=== PATIENT | male | born 1950 | race Caucasian/White ===

== ENCOUNTER → 2017-12-22 | Outpatient (CLI) | payer MEDICARE, OTHER | END | disposition home or self-care (01) | LOC: LABWHC1 08:16 | PROVIDERS: ATTEND Internal Medicine Cardiovascular Disease | DX: I25.10 Atherosclerotic heart disease of native coronary artery without angina pectoris (principal) | CPT/HCPCS: 36415; 83704 ==

== ENCOUNTER → 2018-05-15 | Outpatient (CLI) | payer MEDICARE, OTHER ==
--- NOTE | 2018-05-16 06:39 | CT ---
EXAMINATION TYPE: CT sinus wo con DATE OF EXAM: 05/15/2018 COMPARISON: None HISTORY: 67-year-old male Chronic sinusitis CT DLP: 618.1 mGycm Automated exposure control for dose reduction was used. TECHNIQUE: Noncontrast axial views of the paranasal sinuses were obtained. Coronal reconstructions pe rformed. FINDINGS: PARANASAL SINUSES: Moderate mucosal thickening within the anterior ethmoid air cells and mild within the left greater th an right maxillary sinuses. The sphenoid and frontal sinuses are well pneumatized. There is no air-fluid level. Reactive quang- osteogenesis is not seen. There is no destruction of the osseous bond of the paranasal sinuses. THE NASAL CAVITY: There is mucosal thickening which extends to the left osteomeatal complex. The right osteomeatal comp edwar is patent. There is rightward nasal septal deviation. The imaged brain and orbits are normal in appearance. Visualized middle ear cavities are well pneumatized. Most of the mastoid air cells are excluded from view. Reformatted images confirm above findings. IMPRESSION: Mild to moderate chronic anterior ethmoid and maxillary sinusitis.
== END | disposition home or self-care (01) ==
LOC: RADCTMAIN 18:43
PROVIDERS: ATTEND Family Medicine
DX: J32.0 Chronic maxillary sinusitis (principal); J32.2 Chronic ethmoidal sinusitis
CPT/HCPCS: 70486

== ENCOUNTER 2018-07-26 06:14 | Day surgery (SDC) | payer MEDICARE, OTHER ==
[2018-07-24 10:30] VITALS: BMI 37.6
[~2018-07-26 06:14] MED LIST: HYDROmorphone 1 MG/ML 1 ML SYRINGE IVP PRN; LACTATED RINGERS 1,000 ML IV SCH; LIDOCAINE 1% 20 ML VIAL (10MG/ML) FOR IV START INTRADERMA PRN; ONDANSETRON 4 MG/2 ML VIAL IVP ONE; Pre Op ABX Message 1 EACH MISC MISCELLANE ONE
--- NOTE | 2018-07-26 06:34 | P.GSHP ---
History of Present Illness H&P Date: 07/26/18 CHIEF COMPLAINT: History of left basal cell cancer of the knee. HISTORY OF PRESENT ILLNESS: Wiley Anna is a 67 years-old male who comes in with a history of basal cancer of the knee. Overall, he comes in without any major concerns. This was biopsied a year ago. He now presents for further evaluation and management. There are no reports of lesions elsewhere. PAST MEDICAL HISTORY: Please see list. PAST SURGICAL HISTORY: Please see list. MEDICATIONS: Please see list. ALLERGIES: Please see list. SOCIAL HISTORY: No illicit drug use FAMILY HISTORY: No reports of Crohn disease or ulcerative colitis. REVIEW OF ORGAN SYSTEMS: CONSTITUTIONAL: No reports of fevers or chills. GI: Denies any blood in stools or constipation. PHYSICAL EXAM: Patient is a 67-year-old male. Skin: 1.5 cm irregular bordered basal cell cancer over the medial axis of the left knee along the inferior portion of the thigh. No additional telangiectasia noted. GENERAL: Well developed and in no acute distress. Pleasant. HEENT: No sclera icterus. Extraocular movements grossly intact. Moist buccal mucosa. Head is atraumatic, normocephalic. Hears conversational speech. No nasal drainage. NECK: Supple without lymphadenopathy. No JV distention. CHEST: Non-labored respirations and equal bilateral excursions. CARDIOVASCULAR: Regular rate and rhythm. Palpable 2+ radial pulses. ABDOMEN: Soft. Non-tender. Nondistended. MUSCULOSKELETAL: No clubbing, cyanosis or edema. NEUROLOGIC: No focal or lateralizing signs. PSYCH: Appropriate affect. Alert and oriented to person, place and time. ASSESSMENT: 1. Basal cell cancer of the left knee. PLAN: 1. Excision was advised with overall recovery at least a week. 2. IV sedation was advised. Past Medical History Past Medical History: Hypertension Additional Past Medical History / Comment(s): skin CA left knee History of Any Multi-Drug Resistant Organisms: None Reported Past Surgical History: Cholecystectomy, Pacemaker Past Anesthesia/Blood Transfusion Reactions: No Reported Reaction Additional Past Anesthesia/Blood Transfusion Reaction / Comment(s): no hx blood transfusion Type of Cardiac Device: Permanent Pacemaker Device Placement Date:: 07/2008,02/2016 Smoking Status: Never smoker - Past Family History Sister(s) Family Medical History: Cancer Medications and Allergies Home Medications Medication Instructions Recorded Confirmed Type Aspirin 325 mg PO DAILY 07/29/15 11/14/18 History Terazosin [Hytrin] 5 mg PO HS 04/07/15 07/24/18 History amLODIPine BESYLATE [Norvasc] 10 mg PO HS 04/07/15 07/24/18 History Lisinopril [Zestril] 20 mg PO HS 03/02/16 07/24/18 History Ubidecarenone [Co Q-10] 200 mg PO DAILY 03/02/16 07/24/18 History Dexamethasone [Decadron] 0.75 mg PO QAM 07/24/18 07/24/18 History Allergies Allergy/AdvReac Type Severity Reaction Status Date / Time No Known Allergies Allergy Verified 07/24/18 10:21
[2018-07-26] MEDS ORDERED: ceFAZolin IN SWFI 2 GM/20 ML SYRINGE IVP STA (06:35)
[2018-07-26 06:41] VITALS: RESP 16; TEMP 98
[2018-07-26 07:04] LABS: Glucose,Whole Blood 103 mg/dL (75-99)
[2018-07-26] MEDS ORDERED: MIDAZOLAM 2 MG/2 ML VIAL ONE (07:37)
[2018-07-26] MEDS ORDERED: KETAMINE 10 MG/ML 20 ML VIAL ONE (07:37)
[2018-07-26] MEDS ORDERED: fentaNYL (PF) 50 MCG/ML 2 ML AMP ONE (07:37)
[2018-07-26] MEDS ORDERED: PROPOFOL 10 MG/ML 20 ML VIAL IV ONE (07:37)
[2018-07-26] MEDS ORDERED: BUPIVACAIN-EPI 0.25%-1:200,000 30 ML VIAL SQ ONE (07:51)
[2018-07-26 08:50] VITALS: BP 133/83; PULSE 64
--- NOTE | 2018-07-26 09:09 | P.OP ---
Date of Procedure: 07/26/18 Description of Procedure: SURGEON: KAELA CRAIG MD DELIVERY TRUCK DRIVER HEAVY: NONE. PREOPERATIVE DIAGNOSES: 1. Left medial knee basal cell skin cancer POSTOPERATIVE DIAGNOSES: 1. Left medial knee basal cell skin cancer OPERATION: 1. Excision of left medial knee basal cell skin cancer, 5 x 3 cm with margins 2. Complex closure of left medial knee incision, 7 cm. ANESTHESIA: MAC with local ESTIMATED BLOOD LOSS: 5 mL. SPECIMENS REMOVED: 1. Left medial knee skin cancer, long superior, short medial COMPLICATIONS: None. INDICATIONS: The patient is a 68-year-old male who presents with left medial knee cancer. Surgical options, including excision was discussed. Benefits and risks were described. Informed consent was obtained. DESCRIPTION OF PROCEDURE: Patient was brought into the operating room, laid in left lateral decubitus position. After adequate IV sedation, the left leg was prepped and draped in standard sterile fashion using ChloraPrep. A timeout protocol was confirmed with the surgical team regarding patient's name including procedures to be performed. Preoperative medications was administered. Next, a local field block was administered. The left knee lesion was measured using a ruler with borders marked with indelible marker. An elliptical incision of 5 x 3 cm in size into the dermis followed by circumferential dissection using electro-Bovie cautery was performed into the subcutaneous tissue. Hemostasis was checked with electrocautery cautery. The wound was closed in multiple layers after widely undermining to develop skin flaps. The skin was closed including 0 Vicryl for the deep subcutaneous tissue, 3-0 Vicryl was placed interrupted along the deep dermis. The skin was closed using 4-0 Monocryl. Interrupted stainless skin patti was placed. Exofin liquid glue and tape was used as the final fourth layer. The skin was cleansed. Optifoam dressing was placed. At the end of the procedure, needle, sponge, and instrument count had been verified correct by the manager surgical. The patient was taken to the postanesthesia care unit in stable condition. FINDINGS: 1. Left knee medial lesion excision, 5 x 3 cm subcutaneous tissue Plan - Discharge Summary New Discharge Prescriptions: New Ibuprofen [Motrin] 600 mg PO Q8HR PRN #20 tab PRN Reason: Pain No Action amLODIPine BESYLATE [Norvasc] 10 mg PO HS Terazosin [Hytrin] 5 mg PO HS Aspirin 325 mg PO DAILY Lisinopril [Zestril] 20 mg PO HS Ubidecarenone [Co Q-10] 200 mg PO DAILY Dexamethasone [Decadron] 0.75 mg PO QAM Discharge Medication List Aspirin 325 mg PO DAILY 04/07/15 [History] Terazosin [Hytrin] 5 mg PO HS 04/07/15 [History] amLODIPine BESYLATE [Norvasc] 10 mg PO HS 04/07/15 [History] Lisinopril [Zestril] 20 mg PO HS 03/02/16 [History] Ubidecarenone [Co Q-10] 200 mg PO DAILY 03/02/16 [History] Dexamethasone [Decadron] 0.75 mg PO QAM 07/24/18 [History] Ibuprofen [Motrin] 600 mg PO Q8HR PRN #20 tab 07/26/18 [Rx] Follow up Appointment(s)/Referral(s): Kaela Craig MD [STAFF PHYSICIAN] - 07/30/18 4:20 pm Patient Instructions/Handouts: *Surgery [facility] - (Anesthesia) Discharge Instructions Outpatient Surgery Activity/Diet/Wound Care/Special Instructions: May shower. No baths soaks. Do not remove dressing. Do not overstretch your left knee. Discharge Disposition: HOME SELF-CARE
== END 2018-07-26 09:00 | disposition home or self-care (01) ==
LOC: OR 06:14
PROVIDERS: ATTEND Surgery Plastic and Reconstructive Surgery
DX: C44.719 Basal cell carcinoma of skin of left lower limb, including hip (principal); I10 Essential (primary) hypertension; Z79.82 Long term (current) use of aspirin; Z79.899 Other long term (current) drug therapy; Z79.52 Long term (current) use of systemic steroids; Z95.0 Presence of cardiac pacemaker; Z90.49 Acquired absence of other specified parts of digestive tract
CPT/HCPCS: 11606; 12032; J2250; J2405; J3010; J2704; J0690; 88305

== ENCOUNTER 2019-01-17 09:07 | Day surgery (SDC) | payer MEDICARE, OTHER ==
[2019-01-15 16:34] VITALS: BMI 40.4
[2019-01-17] MEDS ORDERED: LIDOCAINE 1% 20 ML VIAL (10MG/ML) FOR IV START INTRADERMA ONE (09:35)
[2019-01-17] MEDS ORDERED: LACTATED RINGERS 1,000 ML IV ONE (09:35)
[2019-01-17 09:53] VITALS: RESP 18; TEMP 97.9
[2019-01-17] MEDS ORDERED: PROPOFOL 10 MG/ML 20 ML VIAL IV ONE (10:34)
--- NOTE | 2019-01-17 10:54 | P.PCN ---
Date of Procedure: 01/17/19 Procedure(s) Performed: BRIEF HISTORY: Patient is a 68-year-old pleasant male, scheduled for an elective colonoscopy as a part of screening for colorectal neoplasia. PROCEDURE PERFORMED: Colonoscopy. PREOPERATIVE DIAGNOSIS: Screening for colon cancer. IV sedation per Anesthesia. PROCEDURE: After informed consent was obtained, the patient, was brought into the endoscopy unit. IV sedation was administered by Anesthesia under continuous monitoring. Digital rectal examination was normal. Initially the Olympus CF-160 flexible video colonoscope was then inserted in the rectum, gradually advanced into the cecum without any difficulty. Careful examination was performed as the scope was gradually being withdrawn. Ileocecal valve and the appendiceal orifice were visualized and appeared normal. Prep was fair. Irrigation was performed in some areas of the colon. Mucosa of the cecum, ascending colon, transverse colon, descending colon, sigmoid colon, and rectum appeared normal. Retroflexion was performed in the rectum and small internal hemorrhoids were seen. The patient tolerated the procedure well. IMPRESSION: Normal-appearing colon from rectum to cecum with no evidence of colonic neoplasia Small internal hemorrhoids RECOMMENDATIONS: Findings of this examination were discussed with the patient as well as his family. He was advised to have a repeat screening colonoscopy in 10 years.
[2019-01-17 11:14] VITALS: BP 107/76; PULSE 59
== END 2019-01-17 11:45 | disposition home or self-care (01) ==
LOC: ORWHC2ENDO 09:07
PROVIDERS: ATTEND Internal Medicine Gastroenterology
DX: Z12.11 Encounter for screening for malignant neoplasm of colon (principal); K64.8 Other hemorrhoids; I10 Essential (primary) hypertension; Z79.82 Long term (current) use of aspirin; Z79.899 Other long term (current) drug therapy; Z88.5 Allergy status to narcotic agent; Z95.0 Presence of cardiac pacemaker
CPT/HCPCS: J2704; G0121; 45378

== ENCOUNTER → 2019-03-21 | Outpatient (CLI) | payer MEDICARE, OTHER ==
[2019-03-21 10:00] LABS: HCT 43.5 % (39.0-53.0); HGB 14.6 gm/dL (13.0-17.5); MCH 30.5 pg (25.0-35.0); MCHC 33.5 g/dL (31.0-37.0); Mean Platelet Volume 7.2; Platelet Count 262 k/uL (150-450); RBC 4.78 m/uL (4.30-5.90); RDW 13.3 % (11.5-15.5); WBC 7.2 k/uL (3.8-10.6)
[2019-03-21 10:06] LABS: African American GFR (CKD) >90 (>60 ml/min/1.73 sqM); Anion Gap 8 mmol/L; Blood Urea Nitrogen 19 mg/dL (9-20); Carbon Dioxide 29 mmol/L (22-30); Chloride 104 mmol/L (98-107); Potassium 4.5 mmol/L (3.5-5.1); Sodium 141 mmol/L (137-145)
== END | disposition home or self-care (01) ==
LOC: LABPAT 09:32
PROVIDERS: ATTEND Internal Medicine Interventional Cardiology
DX: Z01.812 Encounter for preprocedural laboratory examination (principal); I70.213 Atherosclerosis of native arteries of extremities with intermittent claudication, bilateral legs
CPT/HCPCS: 36415; 80051; 82565; 84520; 85027

== ENCOUNTER 2019-03-26 10:45 | Day surgery (SDC) | payer MEDICARE, OTHER ==
[~2019-03-26 10:45] MED LIST changes: +ALPRAZolam 0.25 MG TAB PO PRN; +ASPIRIN 325 MG TAB PO STA; -HYDROmorphone 1 MG/ML 1 ML SYRINGE IVP PRN; -LACTATED RINGERS 1,000 ML IV SCH; -LIDOCAINE 1% 20 ML VIAL (10MG/ML) FOR IV START INTRADERMA PRN; -ONDANSETRON 4 MG/2 ML VIAL IVP ONE; -Pre Op ABX Message 1 EACH MISC MISCELLANE ONE; +SODIUM CHLORIDE 0.9% 1,000 ML in EMPTY BAG 1 BAG IV ONE
[2019-03-26 11:22] VITALS: TEMP 98.1
[2019-03-26 11:32] LABS: Glucose,Whole Blood 105 mg/dL (75-99)
[2019-03-26] MEDS ORDERED: MIDAZOLAM (PF) 2 MG/2 ML VIAL IVP ONE (12:57)
[2019-03-26] MEDS ORDERED: LIDOCAINE 1% INJ 10MG/ML (20 ML MDV) SQ ONE (12:59)
[2019-03-26] MEDS ORDERED: IOPAMIDOL-250 100ML BTL INTRAARTER ONE (13:18)
[2019-03-26] MEDS ORDERED: IOPAMIDOL-250 50ML BTL INTRAARTER ONE ×2 (13:18)
[2019-03-26] MEDS ORDERED: SODIUM CHLORIDE 0.9% 1,000 ML IV SCH (13:30)
[2019-03-26 15:16] VITALS: RESP 16
[2019-03-26 17:11] VITALS: BP 124/76; PULSE 67
--- NOTE | 2019-03-26 23:56 | AN ---
ANGIOGRAPHY REPORT DATE OF SERVICE: 03/26/2019 PERFORMING PHYSICIAN: Emir Segal MD, advisory application developer. PROCEDURES PERFORMED: 1. Abdominal aortogram. 2. Bilateral lower extremity runoff. 3. Selective left SFA angiogram. INDICATION: This is a 68-year-old gentleman with diabetes, hypertension and dyslipidemia who was experiencing symptoms of left leg intermittent claudication. Because of that, an abdominal aortogram and bilateral lower extremity runoff were advised. APPROACH: Right common femoral artery. COMPLICATIONS: None. LEVEL OF SEDATION: Moderate, with sedation length of 23 minutes. PROCEDURE DESCRIPTION: After obtaining informed consent, the patient was brought to the cardiac laborer road. The right common femoral artery was cannulated using micropuncture technique. The micropuncture wire passed easily. Then I placed a 5-Azerbaijani sheath in the right common femoral artery. I did an abdominal aortogram and bilateral lower extremity runoff using a 5-Azerbaijani pigtail catheter. Then I did select the left SFA using a 5-Azerbaijani RIM catheter with 0.035 stiff Glidewire. The procedure was completed without any complication. SELECTIVE PERIPHERAL ANGIOGRAM: 1. The aorta appeared to be angiographically normal. 2. Common iliac arteries: The right and left common iliac arteries are angiographically normal. 3. Internal iliac arteries: The right and left internal iliac arteries are angiographically normal. 4. External: The right and left externals are angiographically normal. 5. Common femoral arteries: The right and left common femoral arteries are angiographically normal. 6. Profundae: Both profundae are patent. 7. SFA: Both SFA are patent. 8. Popliteal: Both popliteals are patent. 9. Below the knee: There is 3-vessel runoff below the knee on the right side with 2- vessel runoff below the knee on the left side with posterior tibial and peroneal and occluded anterior tibial in the midportion. 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 POST-PROCEDURE MANAGEMENT: 1. Consider maximized medical treatment at this point of time. 2. If the patient continues to be symptomatic, I will consider doing a FACILITIES CUSTODIAN of the left anterior tibial artery. MMODL / IJN: [id number] /
--- NOTE | 2019-03-27 07:17 | IR ---
EXAMINATION TYPE: IR angio abdominal w runoff DATE OF EXAM: 03/26/2019 CLINICAL HISTORY: Left leg pain. TECHNIQUE: Fluoroscopy. COMPARISON: None. FINDINGS: Fluoroscopic guidance was provided during abdominal angiogram with runoff procedure perfor med by Dr. Segal. A total of 4.8 minutes of fluoroscopic time was utilized during the procedure and m ultiple spot images are acquired. Images acquired show right-sided groin access with subsequent angio gram and runoff. IMPRESSION: As Above.
== END 2019-03-26 18:33 | disposition home or self-care (01) ==
LOC: CATHCVL 10:45
PROVIDERS: ATTEND Internal Medicine Interventional Cardiology
DX: I70.213 Atherosclerosis of native arteries of extremities with intermittent claudication, bilateral legs (principal); E78.2 Mixed hyperlipidemia; R73.03 Prediabetes; I10 Essential (primary) hypertension; I49.5 Sick sinus syndrome; Z72.0 Tobacco use; Z95.0 Presence of cardiac pacemaker; Z79.82 Long term (current) use of aspirin; Z79.899 Other long term (current) drug therapy
CPT/HCPCS: 36247; 75625; 75716; C1769 ×5; C1894; J2001; Q9966 ×2; J2250

== ENCOUNTER → 2019-04-18 | Outpatient (CLI) | payer MEDICARE, OTHER ==
--- NOTE | 2019-04-18 08:08 | US ---
EXAMINATION TYPE: US duplex aorta DATE OF EXAM: 04/18/2019 COMPARISON: IR angio abdominal with runoff CLINICAL HISTORY: Z13.6 SCREENING FOR CARDIOVASCULAR DISEASE.; pacemaker, PVD, HT 5'11"; [id number], pr ior smoker EXAM MEASUREMENTS: Abdominal Aorta: Proximal: 2.8cm Transverse Mid: 2.1cm Transverse Distal: 2.7cm A/P Bifurcation: not well seen due to patient body habitus Intimal wall thickening is especially noted posterior wall of distal aorta. IMPRESSION: Although there is no sonographic evidence of abdominal aortic aneurysm there is plaquing and intimal wall thickening of the distal abdominal aorta.
--- NOTE | 2019-04-18 08:12 | US ---
EXAMINATION TYPE: US carotid duplex BILAT DATE OF EXAM: 04/18/2019 COMPARISON: NONE CLINICAL HISTORY: I65.23 OCCLUSION AND STENOSIS OF CAROTID ARTERY. EXAM MEASUREMENTS: RIGHT: Peak Systolic Velocity (PSV) cm/sec ----- Right CCA: 78.5 ----- Right ICA: 108.3 ----- Right ECA: 97.8 ICA/CCA ratio: 1.4 RIGHT: End Diastole cm/sec ----- Right CCA: 30.6 ----- Right ICA: 25.4 ----- Right ECA: 20.0 LEFT: Peak Systolic Velocity (PSV) cm/sec ----- Left CCA: 94.7 ----- Left ICA: 101.2 ----- Left ECA: 75.3 ICA/CCA ratio: 1.1 LEFT: End Diastole cm/sec ----- Left CCA: 28.5 ----- Left ICA: 36.5 ----- Left ECA: 20.0 VERTEBRALS (direction of flow): Right Vertebral: Antegrade Left Vertebral: Antegrade Rhythm: Normal Moderate, irregular, mixed wall changes are imaged at bilateral carotid bifurcation, and PSV is wnl b ilaterally. IMPRESSION: Moderate degree of grayscale atheromatous plaquing with no sonographically evident hemod ynamically significant stenosis within either visualized carotid arterial system. Criteria for Assigning % of Stenosis / Diameter reduction (Estimation based on the indirect measurements of the internal carotid artery velocities (ICA PSV). 1. Normal (no stenosis)=ICA PSV < 125 cm/s: ratio < 2.0: ICA EDV<40 cm/s. 2. Less than 50% stenosis=ICA PSV < 125 cm/s: ratio < 2.0: ICA EDV<40 cm/s. 3. 50 to 69% stenosis=ICA PSV of 125 to 230 cm/s: ration 2.0 ? 4.0: ICA EDV 40-100 cm/s. 4. Greater than 70% stenosis to near occlusion= ICA PSV > 230 cm/s: ratio > 4.0: ICA EDV > 100 cm/s. 5. Near occlusion= ICA PSV velocities may be low or undetectable: variable ratio and ICA EDV. 6. Total occlusion=unable to detect flow.
== END | disposition home or self-care (01) ==
LOC: RADUSWWP 06:52
PROVIDERS: ATTEND Family Medicine
DX: I67.2 Cerebral atherosclerosis (principal); I70.0 Atherosclerosis of aorta
CPT/HCPCS: 93880; 93979

== ENCOUNTER → 2019-05-23 | Outpatient (CLI) | payer MEDICARE, OTHER ==
--- NOTE | 2019-05-23 09:27 | CT ---
EXAMINATION TYPE: CT lumbar spine wo con DATE OF EXAM: 05/23/2019 7:59 AM COMPARISON: CT lumbar spine January 22, 2014 HISTORY: Spondylosis without myelopathy or radiculopathy per order. Low back pain for 2 years into le ft leg per patient. CT DLP: 2698.9 mGycm Automated exposure control for dose reduction was used. Unenhanced CT of the lumbar spine was performed. Bone and soft tissue window settings are submitted as well as coronal and sagittal reconstructions. There are 5 lumbar type vertebra redemonstrated. Lumbar spine show satisfactory alignment without beronica dence of acute fracture or dislocation. Vertebral body heights and disc space heights are fairly well -preserved. No large disc herniations are seen on sagittal images. Mild to moderate multilevel anteri or lateral spurring. Review of axial images demonstrates T12-L1 and L1-L2 and L2-L3 levels to appear within normal limits. Axial images at the L3-L4 level demonstrates mild broad disc bulge mildly effacing the anterior theca l sac with mild/moderate facet degenerative changes. There is mild to moderate bilateral anterior inf erior neural foraminal narrowing. No significant change from prior. Axial images at the L4-L5 level show mild facet degenerative changes and ligament flavum hypertrophy. There is mild broad disc bulge. There is effacement of the anterior thecal sac. There is mild right greater than left anterior inferior neural foraminal narrowing. No significant change from prior. Axial images at the L5-S1 level show [id number] facet degenerative changes bilaterally. There i s central disc protrusion but the spinal canal is preserved. Bilateral neural foramina are patent. Surgical clips near diaphragmatic hiatus distal esophagus are redemonstrated. Mild/moderate calcified plaque of the aorta extending into branch vessels. IMPRESSION: Multilevel degenerative changes mid to lower lumbar spine as detailed above. No significa nt change or progression from 2014 study. No suspicious large disc herniation to account for left-juan ed radiculopathy type symptoms reported by patient.
== END | disposition home or self-care (01) ==
LOC: RADCTMAIN 07:31
PROVIDERS: ATTEND Physical Medicine & Rehabilitation
DX: M48.061 Spinal stenosis, lumbar region without neurogenic claudication (principal); M51.86 Other intervertebral disc disorders, lumbar region; M47.816 Spondylosis without myelopathy or radiculopathy, lumbar region
CPT/HCPCS: 72131

== ENCOUNTER → 2020-06-25 | Outpatient (CLI) | payer MEDICARE, OTHER ==
[2020-06-25 10:18] LABS: HCT 46.5 % (39.0-53.0); HGB 15.3 gm/dL (13.0-17.5); MCH 30.9 pg (25.0-35.0); MCV 93.6 fL (80.0-100.0); Mean Platelet Volume 7.4; Platelet Count 228 k/uL (150-450); RBC 4.97 m/uL (4.30-5.90)
[2020-06-25 10:25] LABS: Potassium 5.1 mmol/L (3.5-5.1)
== END | disposition home or self-care (01) ==
LOC: LABPAT 08:44
PROVIDERS: ATTEND Internal Medicine
DX: Z01.818 Encounter for other preprocedural examination (principal); I42.0 Dilated cardiomyopathy
CPT/HCPCS: 36415; 80051; 82565; 84520; 85027

== ENCOUNTER 2020-07-02 07:55 | Day surgery (SDC) | payer MEDICARE, OTHER ==
[2020-06-29 13:31] VITALS: BMI 37.9
[~2020-07-02 07:55] MED LIST changes: +ALPRAZolam 0.5 MG TAB PO PRN; +ATORVASTATIN 80 MG TAB PO STA; +NITROGLYCERIN SL TABS 0.4 MG TAB SUBLINGUAL PRN
[2020-07-02 08:14] VITALS: RESP 16; TEMP 98.1
[2020-07-02] MEDS ORDERED: SODIUM CHLORIDE 0.9% 1,000 ML IV ONE (08:23)
[2020-07-02] MEDS ORDERED: VERAPAMIL 2.5 MG/ML 2 ML AMP ONE (08:38)
[2020-07-02] MEDS ORDERED: HEPARIN SODIUM 1,000 UN/ML (10ML VL) ONE (08:38)
[2020-07-02] MEDS ORDERED: LIDOCAINE 1% INJ 10MG/ML (20 ML MDV) ONE (08:38)
[2020-07-02] MEDS ORDERED: fentaNYL (PF) 50 MCG/ML 2 ML AMP ONE (08:55)
[2020-07-02] MEDS ORDERED: MIDAZOLAM 2 MG/2 ML VIAL IV ONE (09:05)
[2020-07-02] MEDS ORDERED: LIDOCAINE 1% INJ 10MG/ML (20 ML MDV) SQ ONE (09:05)
[2020-07-02] MEDS ORDERED: fentaNYL (PF) 50 MCG/ML 2 ML AMP IV ONE (09:05)
[2020-07-02] MEDS ORDERED: VERAPAMIL SYRINGE (5 MG/10 ML) INTRAARTER ONE (09:07)
[2020-07-02] MEDS ORDERED: IOPAMIDOL-370 125ML BTL INJ ONE (09:23)
[2020-07-02] MEDS ORDERED: RX INFO: IV CONTRAST WAS GIVEN 1 EACH MISC MISCELLANE PRN (09:32)
--- NOTE | 2020-07-02 09:36 | P.CARDCATH ---
Date of Procedure: 07/02/20 Description of Procedure: PROCEDURES PERFORMED: Bilateral coronary angiography INDICATION: Cardiomyopathy HISTORY: Patient is a pleasant 70-year-old male with history of hypertension, hyperlipidemia, sick sinus syndrome status post permanent pacemaker and newly diagnosed cardiomyopathy who presents for elective heart catheterization for new-onset cardiomyopathy with ejection fraction 25-30%. CONSENT:I have discussed the risks, benefits and alternative therapies for the above-mentioned procedure and for both sedation/analgesia as well as necessary blood product administration, if indicated, as they pertain to this patient. The patient has indicated understanding and acceptance of the risks and pr ocedures discussed. PROCEDURE: After the risks, benefits and alternatives of the above mentioned procedure explained in detail with the patient, informed consent was obtained. Patient was taken to the catheterization lab and prepped and draped in usual fashion. 1% lidocaine was used to anesthetize the right radial artery. A 6- Greek sheath was placed in the right radial artery using modified Seldinger technique. Left coronary angiography was performed with a 5-Greek JL 3.5 catheter and right coronary angiography was performed with a 5-Greek JR5 catheter in various views. The right radial sheath was removed and a TR band was placed with hemostasis achieved. The patient tolerated the procedure well. Patient was transported back to the post catheterization holding area in stable condition. Conscious Sedation: Patient was monitored under the direct supervision of vision of myself for conscious sedation using 1 mg Versed and 25 mcg fentanyl for a total duration of 23 minutes HEMODYNAMICS: Aorta: 122/78 SELECTIVE CORONARY ARTERIOGRAPHY: LEFT MAIN: The left main is a large caliber vessel which bifurcates into the LAD and circumflex. There is no significant stenosis. LEFT ANTERIOR DESCENDING CORONARY ARTERY: LAD is a large caliber vessel which wraps around to the apex. There is mild proximal LAD 20% stenosis and mild luminal irregularities of the remainder of the LAD and 3 small caliber diagonal branches. LEFT CIRCUMFLEX CORONARY ARTERY: Left circumflex is a moderate caliber vessel without significant stenosis. RIGHT CORONARY ARTERY: The right coronary artery is a large caliber vessel which gives off a PDA and PLV branch and is the dominant vessel. There is a proximal heavily calcified 40% RCA stenosis. FINAL IMPRESSION: 1. Mild nonobstructive coronary artery disease as described above. 2. Nonischemic cardiomyopathy PLAN: 1. Aggressive risk factor modification per most recent ACC/AHA guidelines. 2. Follow-up in the office in 1-2 weeks.
[2020-07-02 13:30] VITALS: BP 137/71; PULSE 70
== END 2020-07-02 13:23 | disposition home or self-care (01) ==
LOC: CATHCVL 07:55
PROVIDERS: ATTEND Internal Medicine
DX: I25.10 Atherosclerotic heart disease of native coronary artery without angina pectoris (principal); I25.84 Coronary atherosclerosis due to calcified coronary lesion; I11.0 Hypertensive heart disease with heart failure; I50.22 Chronic systolic (congestive) heart failure; I42.8 Other cardiomyopathies; E78.2 Mixed hyperlipidemia; I49.5 Sick sinus syndrome; Z72.0 Tobacco use; Z95.0 Presence of cardiac pacemaker; Z79.82 Long term (current) use of aspirin; Z79.899 Other long term (current) drug therapy
CPT/HCPCS: 93454; C1769; C1894; J2250; J2001; J3010; J1644; Q9967

== ENCOUNTER → 2021-02-03 | Outpatient (CLI) | payer MEDICARE, OTHER ==
--- NOTE | 2021-02-04 07:35 | CT ---
EXAMINATION TYPE: CT lumbar spine wo con DATE OF EXAM: 02/03/2021 COMPARISON: 05/23/2019 HISTORY: Spondylosis w/o myelopathy CT DLP: 1725.[address] of the lumbar spine was performed. Bone and soft tissue window settings are submitted as well as coronal and sagittal reconstructions. L1-L2: Normal disc space height. No disc herniation protrusion or central stenosis. No facet joint arthropathy. No evidence for foraminal encroachment. L2-L3: Normal disc space height. No disc herniation protrusion or central stenosis. No facet joint arthropathy. No evidence for foraminal encroachment. L3-L4: Moderate degenerative narrowing with posterior disc bulge. Hypertrophy of the ligamentum flavu m and facet joint arthropathy contribute to mild central stenosis. Mild bilateral foraminal encroachm ent noted. L4-L5: Mild degenerative narrowing with posterior disc bulge. Hypertrophic change of the facet joints with the hypertrophy of the ligamentum flavum contribute to mild central stenosis. Right greater red n left foraminal encroachment. L5-S1: Mild degenerative narrowing with posterior disc bulge. No evidence of herniation or protrusion . No central stenosis. Mild facet joint arthropathy. No significant foraminal encroachment. No paraspinal masses are identified. Lumbar segments are free if fracture. IMPRESSION: 1. Degenerative disc disease as discussed. 2. Mild central stenosis at L3-4 and L4-5 as outlined above.
== END | disposition home or self-care (01) ==
LOC: RADCTMAIN 17:26
PROVIDERS: ATTEND Physical Medicine & Rehabilitation
DX: M47.817 Spondylosis without myelopathy or radiculopathy, lumbosacral region (principal); M48.061 Spinal stenosis, lumbar region without neurogenic claudication; M51.36 Other intervertebral disc degeneration, lumbar region; M51.26 Other intervertebral disc displacement, lumbar region; M99.73 Connective tissue and disc stenosis of intervertebral foramina of lumbar region
CPT/HCPCS: 72131

== ENCOUNTER → 2021-07-29 | Outpatient (CLI) | payer MEDICARE, OTHER ==
[2021-07-29 13:19] LABS: ALT 19 U/L (10-49); AST 24 U/L (14-35); Chol/HDL Ratio 6.47 Ratio; LDL Cholesterol,Calculated 160.5 mg/dL (0.0-131.0); VLDL Calculation 19.56 mg/dL (5.00-40.00)
== END | disposition home or self-care (01) ==
LOC: LABWHC1 07:14
PROVIDERS: ATTEND Internal Medicine
DX: E78.2 Mixed hyperlipidemia (principal)
CPT/HCPCS: 36415; 80061; 84450; 84460

== ENCOUNTER 2021-11-09 12:27 | Emergency (ER) | payer MEDICARE, OTHER ==
[2021-11-09 12:42] VITALS: RESP 18; TEMP 97.9
[2021-11-09] MEDS ORDERED: SODIUM CHLORIDE 0.9% 500 ML 500 ML IV STA (13:10)
[2021-11-09] MEDS ORDERED: ASPIRIN 81 MG PO STA (13:10)
[2021-11-09 13:55] LABS: Basophils # (A) 0.1 k/uL (0-0.2); Basophils % (A) 1 %; Eosinophils # (A) 0.3 k/uL (0-0.7); Eosinophils % (A) 4 %; HCT 40.8 % (39.0-53.0); HGB 13.7 gm/dL (13.0-17.5); Lymphocytes # (A) 1.7 k/uL (1.0-4.8); Lymphocytes % (A) 24 %; MCH 31.1 pg (25.0-35.0); MCHC 33.5 g/dL (31.0-37.0); MCV 92.7 fL (80.0-100.0); Mean Platelet Volume 7.3; Monocytes # (A) 0.6 k/uL (0-1.0); Monocytes % (A) 9 %; Neutrophils # (A) 4.2 k/uL (1.3-7.7); Neutrophils % (A) 59 %; Platelet Count 249 k/uL (150-450); RDW 12.5 % (11.5-15.5); WBC 7.1 k/uL (3.8-10.6)
--- NOTE | 2021-11-09 14:08 | XR ---
EXAMINATION TYPE: XR chest 2V DATE OF EXAM: 11/09/2021 COMPARISON: 09/05/2013 HISTORY: Shortness of breath TECHNIQUE: Frontal and lateral views of the chest are obtained. FINDINGS: Scattered senescent parenchymal changes noted. Hyperinflation compatible with COPD. No evidence for infiltrate. No evidence for atelectasis. Heart size is stable. Mediastinal structures are stable and grossly unremarkable. No evidence for hilar prominence. Degenerative changes dorsal spine. IMPRESSION: 1. No evidence for acute pulmonary disease.
[2021-11-09 14:12] LABS: Albumin 3.9 g/dL (3.5-5.0); Calcium 9.2 mg/dL (8.4-10.2); Potassium 4.8 mmol/L (3.5-5.1); Total Bilirubin 0.7 mg/dL (0.2-1.3); Total Protein 6.9 g/dL (6.3-8.2)
[2021-11-09 14:22] LABS: Appearance,Urine Clear (Clear); Bilirubin,Urine Negative (Negative); Blood,Urine Negative (Negative); Color,Urine Yellow; Glucose,Urine (UA) Negative (Negative); INR 0.9 (<1.2); Ketones,Urine Negative (Negative); Leukocyte Esterase,Urine Negative (Negative); Nitrite,Urine Negative (Negative); PH, Urine 5.5 (5.0-8.0); Partial Thromboplastin Time 24.4 sec (22.0-30.0); Protein,Urine Negative (Negative); Prothrombin Time 10.1 sec (9.0-12.0); Specific Gravity,Urine 1.012 (1.001-1.035); Urobilinogen,Urine <2.0 mg/dL (<2.0)
--- NOTE | 2021-11-09 15:27 | CT ---
EXAMINATION TYPE: CT chest angio for PE DATE OF EXAM: 11/09/2021 COMPARISON: None HISTORY: Elevated d-dimer CT DLP: 769.4 mGycm CONTRAST: CT chest with contrast and 3D reconstruction with MIP imaging is performed with IV Contrast, patient injected with 80 mL of Isovue 370. Contrast-enhanced CT of the chest was performed through the course of the pulmonary arteries with sravani g and mediastinal window settings submitted. 3D reconstruction with MIP imaging was also performed. PULMONARY ARTERIES: The pulmonary arteries and their major tributaries are patent. I do not see beronica dence for sizable filling defect to suggest pulmonary embolic process. LUNGS: The lungs are clear and free of infiltrate. No evidence for atelectasis. No pulmonary nodule or mass is detected. No pleural effusion. MEDIASTINUM: Thoracic aorta is of normal caliber,however, evaluation is limited given timing of the contrast bolus. If there is concern for thoracic aortic pathology consider ORLIN. Correlate clinicall y . The heart is not enlarged. No evidence for mediastinal mass. No mediastinal lymph nodes greater than 1cm. HILAR STRUCTURES: No evidence for mass. No hilar lymph nodes greater than 1 cm. UPPER ABDOMEN: No significant abnormality is seen. IMPRESSION: 1. No evidence for Pulmonary embolism at this time.
--- NOTE | 2021-11-09 16:03 | ED ---
General Adult HPI - General Chief complaint: Chest Pain Stated complaint: SOB/Low BP/poss pacemaker issues Time Seen by Provider: 11/09/21 12:45 Source: patient, RN notes reviewed, old records reviewed Mode of arrival: wheelchair Limitations: no limitations - History of Present Illness Initial comments: Patient is a 71-year-old male with past medical history remarkable for diabetes, hypertension, pacemaker who presents emergency Department complaining of lower than normal blood pressures. Patient has lost approximately 100 pounds over the last year or so due to diet and exercise. He has not had any recent blood pressure medication changes but has noticed over the last 3 weeks to months that he will have lower blood pressures at home on his normal doses of medications. He is on lisinopril and Coreg. States his blood pressures will range from upper 80s occasionally to low 100s. He states that when it is low, he does feels somewhat lightheaded, but has not passed out. Has not fallen. He states that occasionally when it is low he is also having shortness of breath. Denies any chest pain or discomfort. Denies any fevers, chills, cough. He currently denies any symptoms. 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 They recommended he come to the emergency department for evaluation. He does have a follow-up appointment with his [employer] rug setter tomorrow. Currently has no symptoms. - Related Data Home Medications Medication Instructions Recorded Confirmed Aspirin 81 mg PO DAILY 04/07/15 11/09/21 Ubidecarenone [Co Q-10] 200 mg PO DAILY 03/02/16 11/09/21 traMADol HCl [Ultram] 50 mg PO TID 07/02/20 11/09/21 Carvedilol [Coreg] 25 mg PO BID 11/09/21 11/09/21 Ibuprofen [Motrin Ib] 600 mg PO Q8H PRN 11/09/21 11/09/21 Latanoprost/Pf [Latanoprost 0.005% 1 drop BOTH EYES HS 11/09/21 11/09/21 Eye Drop] Montelukast [Singulair] 10 mg PO DAILY 11/09/21 11/09/21 Spironolactone 25 mg PO HS 11/09/21 11/09/21 Tamsulosin HCl [Flomax] 0.4 mg PO HS 11/09/21 11/09/21 lisinopriL 40 mg PO HS 11/09/21 11/09/21 Allergies Allergy/AdvReac Type Severity Reaction Status Date / Time codeine AdvReac Itching Verified 11/09/21 14:24 Review of Systems ROS Statement: Those systems with pertinent positive or pertinent negative responses have been documented in the HPI. Review of Systems: CONST: Denies fever EYES: Denies blurry vision ENT: Denies nasal congestion C/V: Denies Chest pain RESP: Denies shortness of breath GI: Denies abdominal pain : Denies dysuria SKIN: Denies rash. MSK: Denies joint pain. NEURO: Denies headache ROS Other: All systems not noted in ROS Statement are negative. Past Medical History Past Medical History: Cancer, Diabetes Mellitus, Hypertension Additional Past Medical History / Comment(s): BASAL CELL left leg. CARDIAC HISTORY PER DR. MILLARD. History of Any Multi-Drug Resistant Organisms: None Reported Past Surgical History: Cholecystectomy, Pacemaker Additional Past Surgical History / Comment(s): BASAL CELL removed from left leg WITH MAC. Past Anesthesia/Blood Transfusion Reactions: No Reported Reaction Additional Past Anesthesia/Blood Transfusion Reaction / Comment(s): . Type of Cardiac Device: Permanent Pacemaker Device Placement Date:: 07/2008,02/2016 Past Psychological History: No Psychological Hx Reported Smoking Status: Never smoker Past Alcohol Use History: None Reported Past Drug Use History: None Reported - Past Family History Sister(s) Family Medical History: Cancer General Exam - General Exam Comments Initial Comments: General: Appears in no acute distress. HEAD: Normal with no signs of head trauma. EYES: PERRLA, EOMI, conjunctiva normal, no discharge. ENT: Hearing grossly intact, normal oropharynx. RESPIRATORY: Clear breath sounds bilaterally. No wheezes, rales, or rhonchi. C/V: Regular rate and rhythm. S1 and S2 auscultated, no edema, peripheral pulses 2+ and intact throughout ABD: Abd is soft, nontender, nondistended EXT: Normal range of motion, no obvious deformity SKIN: No rashes or lesions observed on exposed skin. NEURO: Alert and oriented x 4. Cranial nerves II-XII intact. No focal sensory or strength deficits. Able to ambulate without difficulty. Limitations: no limitations Course Vital Signs 11/09/21 11/09/21 11/09/21 12:37 14:24 16:18 Temperature 97.9 F Pulse Rate 89 71 68 Respiratory 18 18 18 Rate Blood Pressure 98/64 110/74 122/72 O2 Sat by Pulse 98 95 98 Oximetry Medical Decision Making - Medical Decision Making Based on the patient's presentation and physical exam, I'm concerned for possible cardiopulmonary etiology for his current symptoms. He has no acute symptoms, however his blood pressure findings are likely secondary to possible blood pressure medication overuse. Blood pressure is currently within normal limits in the department, as when I checked it was 110/74. He is asymptomatic at this time. He was in agreement this plan. He will be given an aspirin. Also receive a 500 mL fluid bolus. EKG showed no signs of acute ischemia, and it showed chronic paced rhythm with no acute changes. Chest x-ray revealed no acute cardiopulmonary process. Laboratory studies were remarkable for a mildly elevated d-dimer to 1.09. Troponin is negative. BNP is within normal limits. The remainder of the labs are unremarkable. I discussed with the patient the results of his laboratory studies and imaging. Due to the elevated d-dimer did recommend that we obtain a CT PE to rule out p ulmonary embolism. He was in agreement this plan. CT pulmonary embolism revealed no acute PE. On reevaluation, patient remains asymptomatic. He walks around the room without any symptoms. Blood pressures remained within normal limits and stable throughout his stay in the department. I discussed at length with him that I would like him follow up with cardiology which she has an appointment tomorrow. He would like to go home if possible and I believe this is reasonable. He has no acute symptoms. I did recommend that he hold his evening Coreg dose any continue to monitor his blood pressures and discuss his medications with his provider tomorrow. He was in agreement this plan. He falls up with Dr. Butler. I instructed the patient to follow up with their PCP in the next 3 days. I explained that the patient should return to the emergency department if they experience any worsening symptoms. Strict return precautions were discussed with the patient. The patient expressed understanding of these instructions. I answered all questions that the patient had. The patient was discharged home in good condition with their prescriptions and follow up information. - Lab Data Result diagrams: 11/09/21 13:47 11/09/21 13:47 Lab Results 11/09/21 11/09/21 11/09/21 Range/Units 13:47 13:47 13:47 WBC 7.1 (3.8-10.6) k/uL RBC 4.40 (4.30-5.90) m/uL Hgb 13.7 (13.0-17.5) gm/dL Hct 40.8 (39.0-53.0) % MCV 92.7 (80.0-100.0) fL MCH 31.1 (25.0-35.0) pg MCHC 33.5 (31.0-37.0) g/dL RDW 12.5 (11.5-15.5) % Plt Count 249 (150-450) k/uL MPV 7.3 Neutrophils % 59 % Lymphocytes % 24 % Monocytes % 9 % Eosinophils % 4 % Basophils % 1 % Neutrophils # 4.2 (1.3-7.7) k/uL Lymphocytes # 1.7 (1.0-4.8) k/uL Monocytes # 0.6 (0-1.0) k/uL Eosinophils # 0.3 (0-0.7) k/uL Basophils # 0.1 (0-0.2) k/uL PT 10.1 (9.0-12.0) sec INR 0.9 (<1.2) APTT 24.4 (22.0-30.0) sec D-Dimer 1.09 H (<0.60) mg/L FEU Sodium (137-145) mmol/L Potassium (3.5-5.1) mmol/L Chloride (98-107) mmol/L Carbon Dioxide (22-30) mmol/L Anion Gap mmol/L BUN (9-20) mg/dL Creatinine (0.66-1.25) mg/dL Est GFR (CKD-EPI)AfAm (>60 ml/min/1.73 sqM) Est GFR (CKD-EPI)NonAf (>60 ml/min/1.73 sqM) Glucose (74-99) mg/dL Calcium (8.4-10.2) mg/dL Magnesium (1.6-2.3) mg/dL Total Bilirubin (0.2-1.3) mg/dL AST (17-59) U/L ALT (4-49) U/L Alkaline Phosphatase (38-126) U/L Troponin I (0.000-0.034) ng/mL NT-Pro-B Natriuret Pep pg/mL Total Protein (6.3-8.2) g/dL Albumin (3.5-5.0) g/dL Urine Color Yellow Urine Appearance Clear (Clear) Urine pH 5.5 (5.0-8.0) Ur Specific [place] 1.012 (1.001-1.035) Urine Protein Negative (Negative) Urine Glucose (UA) Negative (Negative) Urine Ketones Negative (Negative) Urine Blood Negative (Negative) Urine Nitrite Negative (Negative) Urine Bilirubin Negative (Negative) Urine Urobilinogen <2.0 (<2.0) mg/dL Ur Leukocyte Esterase Negative (Negative) 11/09/21 11/09/21 11/09/21 Range/Units 13:47 13:47 13:47 WBC (3.8-10.6) k/uL RBC (4.30-5.90) m/uL Hgb (13.0-17.5) gm/dL Hct (39.0-53.0) % MCV (80.0-100.0) fL MCH (25.0-35.0) pg MCHC (31.0-37.0) g/dL RDW (11.5-15.5) % Plt Count (150-450) k/uL MPV Neutrophils % % Lymphocytes % % Monocytes % % Eosinophils % % Basophils % % Neutrophils # (1.3-7.7) k/uL Lymphocytes # (1.0-4.8) k/uL Monocytes # (0-1.0) k/uL Eosinophils # (0-0.7) k/uL Basophils # (0-0.2) k/uL PT (9.0-12.0) sec INR (<1.2) APTT (22.0-30.0) sec D-Dimer (<0.60) mg/L FEU Sodium 136 L (137-145) mmol/L Potassium 4.8 (3.5-5.1) mmol/L Chloride 105 (98-107) mmol/L Carbon Dioxide 23 (22-30) mmol/L Anion Gap 8 mmol/L BUN 26 H (9-20) mg/dL Creatinine 1.23 (0.66-1.25) mg/dL Est GFR (CKD-EPI)AfAm 67 (>60 ml/min/1.73 sqM) Est GFR (CKD-EPI)NonAf 58 (>60 ml/min/1.73 sqM) Glucose 107 H (74-99) mg/dL Calcium 9.2 (8.4-10.2) mg/dL Magnesium 2.0 (1.6-2.3) mg/dL Total Bilirubin 0.7 (0.2-1.3) mg/dL AST 32 (17-59) U/L ALT 19 (4-49) U/L Alkaline Phosphatase 49 (38-126) U/L Troponin I <0.012 (0.000-0.034) ng/mL NT-Pro-B Natriuret Pep 298 pg/mL Total Protein 6.9 (6.3-8.2) g/dL Albumin 3.9 (3.5-5.0) g/dL Urine Color Urine Appearance (Clear) Urine pH (5.0-8.0) Ur Specific [place] (1.001-1.035) Urine Protein (Negative) Urine Glucose (UA) (Negative) Urine Ketones (Negative) Urine Blood (Negative) Urine Nitrite (Negative) Urine Bilirubin (Negative) Urine Urobilinogen (<2.0) mg/dL Ur Leukocyte Esterase (Negative) - EKG Data -: EKG Interpreted by Me EKG Comments: 12-lead Electrocardiogram Interpretation Note EKG was reviewed and interpreted by myself. 12-lead ECG performed at 1249 is interpreted by me as revealing paced rhythm at a rate of at 69 beats per minute. Left axis deviation. SD interval is 354 ms, QR episcopalian is 152 ms, QTc is 446 seconds. Patient does have signs of a left bundle branch block which is chronic secondary to space rhythm. There are PVCs present. No acute findings.. There were no ST or T wave abnormalities to suggest myocardial ischemia or injury. R wave progression across the precordium was satisfactory. By my interpretation this EKG is non-diagnostic for acute ischemia. A comparison to prior EKGs, this EKG shows no acute changes. Disposition Clinical Impression: Low blood pressure Disposition: HOME SELF-CARE Condition: Good Is patient prescribed a controlled substance at d/c from ED?: No Referrals: Jimmie Felton MD [Primary Care Provider] - 1-2 days
[2021-11-09 16:21] VITALS: BP 122/72; PULSE 68
== END 2021-11-09 16:21 | disposition home or self-care (01) ==
LOC: EC 12:27
DX: I95.9 Hypotension, unspecified (principal); E11.9 Type 2 diabetes mellitus without complications; I10 Essential (primary) hypertension; Z79.82 Long term (current) use of aspirin; Z79.899 Other long term (current) drug therapy
CPT/HCPCS: 36415; 93005; 85379; 83880; 80053; 83735; 84484; 85025; 85610; 85730; 81003; 71046; 71275; 99285; Q9967

== ENCOUNTER → 2023-01-06 | Outpatient (CLI) | payer MEDICARE, OTHER ==
[2023-01-06 13:07] LABS: ALT 23 U/L (10-49); AST 28 U/L (14-35); VLDL Calculation 14.14 mg/dL (5.00-40.00)
== END | disposition home or self-care (01) ==
LOC: LABWHC1 08:32
PROVIDERS: ATTEND Internal Medicine
DX: E78.2 Mixed hyperlipidemia (principal)
CPT/HCPCS: 36415; 80061; 84450; 84460

== ENCOUNTER → 2023-04-14 | Outpatient (CLI) | payer MEDICARE, OTHER ==
[2023-04-14 14:01] LABS: ALT 30 U/L (10-49); AST 31 U/L (14-35); Chol/HDL Ratio 4.04 Ratio; LDL Cholesterol,Calculated 102.4 mg/dL (0.0-131.0); VLDL Calculation 11.18 mg/dL (5.00-40.00)
== END | disposition home or self-care (01) ==
LOC: LABWHC1 08:15
PROVIDERS: ATTEND Nurse Practitioner Acute Care
DX: E78.2 Mixed hyperlipidemia (principal)
CPT/HCPCS: 36415; 80061; 84450; 84460

== ENCOUNTER → 2023-10-30 | Outpatient (CLI) | payer MEDICARE, OTHER ==
[2023-10-30 12:28] LABS: African American GFR (CKD) 73 (>60 ml/min/1.73 sqM); Blood Urea Nitrogen 32 mg/dL (9-20); Non-African American GFR(CKD) 64 (>60 ml/min/1.73 sqM)
--- NOTE | 2023-11-01 11:53 | CT ---
EXAMINATION TYPE: CT chest w con CT DLP: 695 mGycm, Automated exposure control for dose reduction was used. DATE OF EXAM: 10/30/2023 12:56 PM COMPARISON: CT chest angiogram for PE 11/09/2021 . CLINICAL INDICATION:Male, 73 years old with history of J98.59 OTHER DISEASES OF MEDIASTINUM; PHH, c/o SOB TECHNIQUE: Multiple axial images were obtained through the chest. Sagittal and coronal reformats were created for review. Contrast used:100 mL of Isovue 300 with IV Contrast (None if empty) Oral contrast used: (None if empty) FINDINGS: LUNGS/ PLEURA: Stable appearance of mild linear and nodular scarring in the lung bases. No consolidat ion, effusion, or pneumothorax. AIRWAY: Central airways are patent. Minimal mucous secretions along the tracheal wall. LOWER NECK: No significant findings. Left chest dual-lead pacemaking device with lead tips terminatin g in the RA and RV. MEDIASTINUM: No gross evidence of adenopathy. Some periesophageal radiodensities in the inferior alejandro st again seen, suggesting prior surgery or trauma. HEART: Normal heart size. Moderate coronary artery calcification and/or stents. Moderate to heavy jon cification of the mitral valve. No pericardial effusion. VASCULATURE: Mild to moderate atherosclerotic calcifications of the aorta and branches. Ascending ao rta is 3.6 CM, descending is 2.8 CM. Aorta is considered normal in size. Bovine type arch configurat ion with a common trunk giving rise to the brachiocephalic and left common carotid arteries. Calcific ations of the proximal vessels from the arch without significant stenosis seen. No dissection. Pulmonary trunk measures 2.5 CM. Pulmonary trunk is normal in size. Grossly preserved enhancement of the pulmonary arteries, in the limits of non-CTA exam. SOFT TISSUES/LYMPH NODES: Unremarkable soft tissues. No axillary adenopathy. UPPER ABDOMEN: Cholecystectomy clips. Visualized CBD is dilated up to 1.6 CM. Moderate to large amoun t of stool in the visualized colon, correlate for constipation. Nonobstructive punctate calculus in t he mid right kidney. MUSCULOSKELETAL: No acute osseous abnormalities. Moderate disc degeneration changes are present throu ghout the thoracolumbar spine. Multilevel mild anterior wedging, favored to be chronic. IMPRESSION: 1. No acute abnormality in the chest. 2. Dilated CBD. Status post cholecystectomy. Correlate clinically with LFTs. 3. Moderate to large amount of stool in the visualized colon, correlate for constipation.
== END | disposition home or self-care (01) ==
LOC: RADCTMAIN 11:45
PROVIDERS: ATTEND Family Medicine
DX: K83.8 Other specified diseases of biliary tract (principal); J98.59 Other diseases of mediastinum, not elsewhere classified; R06.02 Shortness of breath; Z90.49 Acquired absence of other specified parts of digestive tract
CPT/HCPCS: 82565; 84520; 71260; 36415; Q9967

== ENCOUNTER → 2024-02-16 | Outpatient (CLI) | payer MEDICARE, OTHER ==
[2024-02-16 13:27] LABS: ALT 23 U/L (10-49); AST 27 U/L (14-35); Chol/HDL Ratio 4.37 Ratio; LDL Cholesterol,Calculated 104.7 mg/dL (0.0-131.0)
== END | disposition home or self-care (01) ==
LOC: LABWHC1 07:26
PROVIDERS: ATTEND Internal Medicine
DX: E78.2 Mixed hyperlipidemia (principal)
CPT/HCPCS: 36415; 80061; 84450; 84460

== ENCOUNTER 2024-03-23 09:23 | Observation (INO) | payer MEDICARE, OTHER ==
[2024-03-23 09:29] VITALS: TEMP 97.9
--- NOTE | 2024-03-23 09:45 | ED ---
General Adult HPI - General Chief complaint: Chest Pain Stated complaint: Chest pain,SOB Time Seen by Provider: 03/23/24 09:30 Source: patient, RN notes reviewed, old records reviewed Mode of arrival: ambulatory Limitations: no limitations - History of Present Illness Initial comments: This is a 73-year-old male who presents to the emergency department with a past medical history significant for a pacer high cholesterol and high blood pressure. Patient states for the last couple of days has had chest pain radiates to his jaw and now its mostly in his back. Patient states the pain in his chest is a heaviness feels like an anvil is sitting in his chest. Patient states he also has some radiation to the left side of his chest as well. Patient also complains of shortness of breath. Patient denies any fever chills or cough. Patient denies any abdominal pain patient [place] nausea or vomiting. - Related Data Home Medications Medication Instructions Recorded Confirmed Aspirin 81 mg PO DAILY 04/07/15 03/23/24 traMADol HCl [Ultram] 50 mg PO TID 07/02/20 03/23/24 Ibuprofen [Motrin Ib] 600 mg PO TID 11/09/21 03/23/24 Latanoprost/Pf [Latanoprost 0.005% 1 drop BOTH EYES HS 11/09/21 03/23/24 Eye Drop] Montelukast [Singulair] 10 mg PO HS 11/09/21 03/23/24 Spironolactone 25 mg PO HS 11/09/21 03/23/24 Tamsulosin HCl [Flomax] 0.4 mg PO HS 11/09/21 03/23/24 carvediloL [Coreg] 25 mg PO BID 11/09/21 03/23/24 Brimonidine Tartrate [Alphagan P 1 drops LEFT EYE BID 03/23/24 03/23/24 0.2% Ophth Soln] Inclisiran Sodium [Leqvio] 284 mg SQ Q182D 03/23/24 03/23/24 Loratadine [Claritin] 10 mg PO DAILY 03/23/24 03/23/24 lisinopriL [Zestril] 20 mg PO HS 03/23/24 03/23/24 Allergies Allergy/AdvReac Type Severity Reaction Status Date / Time codeine AdvReac Itching Verified 03/23/24 11:47 Review of Systems ROS Statement: Those systems with pertinent positive or pertinent negative responses have been documented in the HPI. ROS Other: All systems not noted in ROS Statement are negative. Past Medical History Past Medical History: Cancer, Diabetes Mellitus, Hypertension Additional Past Medical History / Comment(s): BASAL CELL left leg. CARDIAC HISTORY PER DR. MILLARD. History of Any Multi-Drug Resistant Organisms: None Reported Past Surgical History: Cholecystectomy, Pacemaker Additional Past Surgical History / Comment(s): BASAL CELL removed from left leg WITH MAC. Past Anesthesia/Blood Transfusion Reactions: No Reported Reaction Additional Past Anesthesia/Blood Transfusion Reaction / Comment(s): . Type of Cardiac Device: Permanent Pacemaker Device Placement Date:: 07/2008,02/2016 Past Psychological History: No Psychological Hx Reported Smoking Status: Never smoker Past Alcohol Use History: None Reported Past Drug Use History: None Reported - Past Family History Sister(s) Family Medical History: Cancer General Exam - General Exam Comments Initial Comments: GENERAL: Patient is well-developed and well-nourished. Patient is nontoxic and well- hydrated and is in mild distress. ENT: Neck is soft and supple. No significant lymphadenopathy is noted. Oropharynx is clear. Moist mucous membranes. Neck has full range of motion without eliciting any pain. EYES: The sclera were anicteric and conjunctiva were pink and moist. Extraocular movements were intact and pupils were equal round and reactive to light. Eyelids were unremarkable. PULMONARY: Unlabored respirations. Good breath sounds bilaterally. No audible rales rhonchi or wheezing was noted. CARDIOVASCULAR: There is a regular rate and rhythm without any murmurs gallops or rubs. ABDOMEN: Soft and nontender with normal bowel sounds. SKIN: Skin is clear with no lesions or rashes and otherwise unremarkable. NEUROLOGIC: Patient is alert and oriented x3. Cranial nerves II through XII are grossly intact. Motor and sensory are also intact. Normal speech, volume and content. Symmetrical smile. MUSCULOSKELETAL: Normal extremities with adequate strength and full range of motion. LYMPHATICS: No significant lymphadenopathy is noted PSYCHIATRIC: Normal psychiatric evaluation. Limitations: no limitations Course Vital Signs 03/23/24 03/23/24 03/23/24 09:26 09:43 10:49 Temperature 97.9 F Pulse Rate 79 62 64 Pulse Rate [ 62 Stained Glass Installer ] Respiratory 20 18 18 Rate Blood Pressure 125/81 121/72 98/61 O2 Sat by Pulse 98 98 95 Oximetry 03/23/24 11:43 Temperature Pulse Rate 60 Pulse Rate [ Stained Glass Installer ] Respiratory 18 Rate Blood Pressure 106/64 O2 Sat by Pulse 95 Oximetry Medical Decision Making - Medical Decision Making EKG is interpreted by myself. EKG shows a paced rhythm at 64 bpm parables 366 QRS is 145 QT interval is 422 QTc is 431. Patient's EKG shows a right bundle melvin block. Was pt. sent in by a medical professional or institution (RB[facility] Coronel, STRE[facility] VENDOR, urgent care, hospital, or [facility]...) When possible be specific @ -No Did you speak to anyone other than the patient for history (EMS, parent, family, police, friend...)? What history was obtained from this source @ -No Did you review nursing and triage notes (agree or disagree)? Why? @ -I reviewed and agree with nursing and triage notes Were old charts reviewed (outside hosp., previous admission, EMS record, old EKG, old radiological studies, urgent care reports/EKG's, [facility] records)? Report findings @ -No old charts were reviewed Differential Diagnosis? @ -Differential Chest Pain: Stable Angina, Unstable Angina, STEMI, NSTEMI Aortic Dissection, Pneumothorax, Musculoskeletal, Esophageal Spasm GERD, Cholecystitis, Pancreatitis, Zoster, this is not meant to be an all-inclusive list. EKG interpreted by me (3pts min.). @ -As above X-rays interpreted by me (1pt min.). @ -Chest x-ray shows no acute normality CT interpreted by me (1pt min.). @ -CT of the chest was done because D-dimer was elevated and showed no PE and no aortic dissection U/S interpreted by me (1pt. min.). @ -None done What testing was considered but not performed or refused? (CT, X-rays, U/S, labs)? Why? @ -None What meds were considered but not given or refused? Why? @ -None Did you discuss the management of the patient with other professionals (professionals i.e. BRODY Coronel, STREET VENDOR, lab, RT, psych nurse, social media community manager, hadoop engineer, teacher, aircraft electronics technical officer, shelter case manager)? Give summary @ -Sound physicians and they agreed admit the patient admit the patient wrote admitting orders Was smoking cessation discussed for >3mins.? @ -No Was critical care preformed (if so, how long)? @ -No Were there social determinants of health that impacted care today? How? (Homelessness, low income, unemployed, alcoholism, drug addiction, transportation, low edu. Level, literacy, decrease access to med. care, [facility], rehab)? @ -No Was there de-escalation of care discussed even if they declined (Discuss DNR or withdrawal of care, Hospice)? DNR status @ -No What co-morbidities impacted this encounter? (DM, HTN, Smoking, COPD, CAD, Cancer, CVA, ARF, Chemo, Hep., AIDS, mental health diagnosis, sleep apnea, morbid obesity)? @ -None Was patient admitted / discharged? Hospital course, mention meds given and route, prescriptions, significant lab abnormalities, going to OR and other pertinent info. @ -Patient got an aspirin and Nitropaste. Patient states the Nitropaste took his pain away completely. Patient had a CT because his D-dimer was elevated and the CT was negative for PE and negative for aortic dissection. Undiagnosed new problem with uncertain prognosis? @ -No Drug Therapy requiring intensive monitoring for toxicity (Heparin, Nitro, Insulin, Cardizem)? @ -No Were any procedures done? @ -No Diagnosis/symptom? @ -Chest Acute, or Chronic, or Acute on Chronic? @ -Acute Uncomplicated (without systemic symptoms) or Complicated (systemic symptoms)? @ -Complicated Side effects of treatment? @ -No Exacerbation, Progression, or Severe Exacerbation? @ -No Poses a threat to life or bodily function? How? (Chest pain, [place], NH, pneumonia, PE, COPD, DKA, ARF, appy, cholecystitis, CVA, Diverticulitis, Homicidal, Suicidal, threat to staff... and all critical care pts) @ -Yes this could lead to an NH and endorgan dysfunction - Lab Data Result diagrams: 03/23/24 09:48 03/23/24 09:48 Lab Results 03/23/24 03/23/24 03/23/24 Range/Units 09:48 09:48 09:48 WBC 11.2 H (3.8-10.6) k/uL RBC 4.19 L (4.30-5.90) m/uL Hgb 12.9 L (13.0-17.5) gm/dL Hct 38.5 L (39.0-53.0) % MCV 91.9 (80.0-100.0) fL MCH 30.7 (25.0-35.0) pg MCHC 33.4 (31.0-37.0) g/dL RDW 12.9 (11.5-15.5) % Plt Count 256 (150-450) k/uL MPV 7.8 Neutrophils % 74 % Lymphocytes % 13 % Monocytes % 8 % Eosinophils % 2 % Basophils % 1 % Neutrophils # 8.3 H (1.3-7.7) k/uL Lymphocytes # 1.5 (1.0-4.8) k/uL Monocytes # 0.9 (0-1.0) k/uL Eosinophils # 0.2 (0-0.7) k/uL Basophils # 0.1 (0-0.2) k/uL Manual Slide Review Performed PT 11.4 (10.0-12.5) sec INR 1.1 (<1.2) APTT 26.6 (22.0-30.0) sec D-Dimer 20.91 H (<0.60) mg/L FEU Sodium 135 L (137-145) mmol/L Potassium 4.4 (3.5-5.1) mmol/L Chloride 109 H (98-107) mmol/L Carbon Dioxide 21 L (22-30) mmol/L Anion Gap 5 mmol/L BUN 16 (9-20) mg/dL Creatinine 0.94 (0.66-1.25) mg/dL Est GFR (CKD-EPI)AfAm >90 (>60 ml/min/1.73 sqM) Est GFR (CKD-EPI)NonAf 79 (>60 ml/min/1.73 sqM) Glucose 112 H (74-99) mg/dL Calcium 8.6 (8.4-10.2) mg/dL Magnesium 1.9 (1.6-2.3) mg/dL Total Bilirubin 0.6 (0.2-1.3) mg/dL AST 30 (17-59) U/L ALT 16 (4-49) U/L Alkaline Phosphatase 77 (38-126) U/L Troponin I (0.000-0.034) ng/mL Total Protein 6.5 (6.3-8.2) g/dL Albumin 3.5 (3.5-5.0) g/dL 03/23/24 Range/Units 09:48 WBC (3.8-10.6) k/uL RBC (4.30-5.90) m/uL Hgb (13.0-17.5) gm/dL Hct (39.0-53.0) % MCV (80.0-100.0) fL MCH (25.0-35.0) pg MCHC (31.0-37.0) g/dL RDW (11.5-15.5) % Plt Count (150-450) k/uL MPV Neutrophils % % Lymphocytes % % Monocytes % % Eosinophils % % Basophils % % Neutrophils # (1.3-7.7) k/uL Lymphocytes # (1.0-4.8) k/uL Monocytes # (0-1.0) k/uL Eosinophils # (0-0.7) k/uL Basophils # (0-0.2) k/uL Manual Slide Review PT (10.0-12.5) sec INR (<1.2) APTT (22.0-30.0) sec D-Dimer (<0.60) mg/L FEU Sodium (137-145) mmol/L Potassium (3.5-5.1) mmol/L Chloride (98-107) mmol/L Carbon Dioxide (22-30) mmol/L Anion Gap mmol/L BUN (9-20) mg/dL Creatinine (0.66-1.25) mg/dL Est GFR (CKD-EPI)AfAm (>60 ml/min/1.73 sqM) Est GFR (CKD-EPI)NonAf (>60 ml/min/1.73 sqM) Glucose (74-99) mg/dL Calcium (8.4-10.2) mg/dL Magnesium (1.6-2.3) mg/dL Total Bilirubin (0.2-1.3) mg/dL AST (17-59) U/L ALT (4-49) U/L Alkaline Phosphatase (38-126) U/L Troponin I <0.012 (0.000-0.034) ng/mL Total Protein (6.3-8.2) g/dL Albumin (3.5-5.0) g/dL Disposition Clinical Impression: Chest pain Disposition: ADMITTED IP TO THIS HOSP Referrals: Jimmie Felton MD [Primary Care Provider] - 1-2 days Time of Disposition: 12:35
[2024-03-23 09:48] VITALS: RESP 18
[2024-03-23] MEDS: NITROGLYCERIN OINT 1 INCH/GM PACKET TOPICAL STA (09:52)
[2024-03-23] MEDS: ASPIRIN 81 MG PO STA (09:52)
--- NOTE | 2024-03-23 10:07 | XR ---
EXAMINATION TYPE: XR chest 2V DATE OF EXAM: 03/23/2024 COMPARISON: 11/09/2021 HISTORY: Shortness of breath TECHNIQUE: Frontal and lateral views of the chest are obtained. FINDINGS: Scattered senescent parenchymal changes noted. Hyperinflation compatible with COPD. No evidence for infiltrate. No evidence for atelectasis. Heart size is stable. Mediastinal structures are stable and grossly unremarkable. No evidence for hilar prominence. Degenerative changes dorsal spine. IMPRESSION: 1. No evidence for acute pulmonary disease.
[2024-03-23 10:11] LABS: ALT 16 U/L (4-49); AST 30 U/L (17-59); African American GFR (CKD) >90 (>60 ml/min/1.73 sqM); Albumin 3.5 g/dL (3.5-5.0); Alkaline Phosphatase 77 U/L (38-126); Anion Gap 5 mmol/L; Blood Urea Nitrogen 16 mg/dL (9-20); Calcium 8.6 mg/dL (8.4-10.2); Carbon Dioxide 21 mmol/L (22-30); Chloride 109 mmol/L (98-107); Glucose 112 mg/dL (74-99); Magnesium 1.9 mg/dL (1.6-2.3); Non-African American GFR(CKD) 79 (>60 ml/min/1.73 sqM); Potassium 4.4 mmol/L (3.5-5.1); Sodium 135 mmol/L (137-145); Total Bilirubin 0.6 mg/dL (0.2-1.3); Total Protein 6.5 g/dL (6.3-8.2)
[2024-03-23 10:14] LABS: INR 1.1 (<1.2); Partial Thromboplastin Time 26.6 sec (22.0-30.0); Prothrombin Time 11.4 sec (10.0-12.5)
[2024-03-23 10:20] LABS: Basophils # (A) 0.1 k/uL (0-0.2); Basophils % (A) 1 %; Eosinophils # (A) 0.2 k/uL (0-0.7); Eosinophils % (A) 2 %; HCT 38.5 % (39.0-53.0); HGB 12.9 gm/dL (13.0-17.5); Lymphocytes # (A) 1.5 k/uL (1.0-4.8); Lymphocytes % (A) 13 %; MCH 30.7 pg (25.0-35.0); MCHC 33.4 g/dL (31.0-37.0); MCV 91.9 fL (80.0-100.0); Mean Platelet Volume 7.8; Monocytes # (A) 0.9 k/uL (0-1.0); Monocytes % (A) 8 %; Neutrophils # (A) 8.3 k/uL (1.3-7.7); Neutrophils % (A) 74 %; Platelet Count 256 k/uL (150-450); RBC 4.19 m/uL (4.30-5.90); RDW 12.9 % (11.5-15.5); WBC 11.2 k/uL (3.8-10.6)
--- NOTE | 2024-03-23 11:51 | CT ---
EXAMINATION TYPE: CT angio thor/abd pel aorta DATE OF EXAM: 03/23/2024 COMPARISON: CT chest 10/30/2023 HISTORY: Chest pain CT DLP: 2562.4 mGycm CONTRAST: CTA thoracic and abdominal aorta with 3-D reconstruction is performed and without and with IV Contras t, patient injected with 100 ml mL of Isovue 370. Contrast CTA of the thoracic and abdominal aorta was performed from the lung apex through the base of the pelvis. 3-D reconstruction imaging obtained at a separate workstation. CT Chest: THORACIC AORTA: There is no evidence for aneurysm. No dissection or mediastinal hematoma. Mild ath eromatous changes are seen. LUNGS: The lungs are clear and free of infiltrate or atelectasis. No pulmonary nodule or mass is det ected. No pleural effusion or CT evidence of interstitial lung disease. MEDIASTINUM: The heart is not enlarged. No evidence for mediastinal mass or adenopathy. HILAR STRUCTURES: No evidence for mass. No hilar adenopathy is appreciated. OTHER: No significant abnormality. CONTRAST CT ABDOMEN AND PELVIS ABDOMINAL AORTA: No evidence for abdominal aortic aneurysm. No dissection. Iliac vessels are symmet alexander and patent. LIVER/GB-the gallbladder is surgically absent. PANCREAS- No significant abnormality is seen. SPLEEN- No significant abnormality is seen. ADRENALS- No significant abnormality is seen. KIDNEYS/BLADDER-nonobstructive nephrolithiasis left kidney measuring up to 3 mm. Parapelvic and renal cortical cysts seen bilaterally. BOWEL- No Significant abnormality GENITAL ORGANS: No gross abnormality seen. LYMPH NODES- No greater than 1cm abdominal or pelvic lymph nodes areappreciated. OSSEOUS STRUCTURES- No significant abnormality is seen. OTHER- No significant abnormality is seen. IMPRESSION- 1. No evidence for thoracic or abdominal aortic aneurysm or dissection. 2. Nonobstructing nephrolithiasis left kidney.
[2024-03-23] MEDS ORDERED: NITROGLYCERIN SL TABS 0.4 MG TAB SUBLINGUAL PRN (12:38)
[2024-03-23] MEDS: LORazepam 2 MG/ML INJ IV STA (12:39)
[2024-03-23] MEDS: traMADol 50 MG TAB PO SCH (16:13)
[2024-03-23] MEDS: IBUPROFEN 600 MG TAB PO SCH (16:14)
--- NOTE | 2024-03-23 16:54 | P.HPIM ---
History of Present Illness H&P Date: 03/23/24 This note will serve as a H&P along with discharge summary. 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 Pain has been ongoing for the past 2 days and started spontaneously. Pain is between the shoulder blades, sharp and stabbing. Pain is worse with movement and deep inspiration. Pain is worsened with abduction of the left arm above the head and rotation of his neck. Patient reports receiving monthly steroid injections with Dr. Lindsey. He takes Ibuprofen and Tramadol TID for pain management. He denies any headache, lower extremity edema, nausea or vomiting, chest pain, shortness of breath, palpitations, changes in urination or bowel habits. No changes in appetite or weight. No numbness/weakness/tingling. 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 When symptoms persisted this prompted him to come to the ED. In the ED he underwent extensive evaluation. BP 125/81, HR 79, T 97.9F, RR 20, 98% on RA. CBC, Coag panel, CMP significant for WBC 11.2, RBC 4.19, Hg 12.9, Hct 38.5, Na 135, Cl 109, bicarb 21, glu 112. Mag 1.9. D-Dimer 20.91. Troponin < 0.012 x 3. CXR showed no acute process. EKG showed atrial paced rhythm with RBBB similar to that of [address] angio thor/abd/pel negative for aortic dissection, negative for PE, trace left sided pleural effusion, and non obstructing nephrolithiasis. General: non toxic, no distress, appears at stated age Derm: warm, dry Head: atraumatic, normocephalic, symmetric Eyes: EOMI, no lid lag, anicteric sclera Mouth: no lip lesion, mucus membranes moist Cardiovascular: S1S2 reg, no murmur Lungs: CTA bilateral, no rhonchi, no rales , no accessory muscle use Abdominal: soft, nontender to palpation, no guarding, no appreciable organomegaly Ext: no gross muscle atrophy, no edema, no contractures, tenderness over the left thoracic paraspinal muscles T5-T9 area, restricted abduction of the left arm due to pain, full axial rotation of the neck with pain Neuro: CN II-XI grossly intact, no focal neuro deficits Psych: Alert, oriented, appropriate affect Discharge Diagnosis: Interscapular pain Elevated D-Dimer Normocytic anemia Leukocytosis HFrEF patient reported EF of 40% not in acute exacerbation SSS status post pacemaker CAD with mild obstructive CAD on cardiac catheterization in 2019 Glaucoma Dyslipidemia BPH Patient's symptoms are likely related to interscapular pain due to musculoskeletal reasons. Troponins have been trended three times and ACS has been ruled out. His EKG is similar to the EKG done in 2021. D-Dimer is elevated, however CT angiogram has ruled out aortic dissection and pulmonary embolus. Options were discussed with the patient including being admitted as observation status for Cardiology evaluation. He prefers to go home with outpatient follow up. He is advised to continue taking all his home medications. He is advised to come back to the ED for worsening of his symptoms. He is advised to follow up with his PCP within 1-2 days of discharge. Follow up with Dr. Lindsey and Dr. Butler within 1 week of discharge. CODE STATUS: FULL CODE DVT Prophylaxis: GI Prophylaxis: Designated medical POA if patient is not able to make medical decisions for themselves: I have reviewed the following it infrastructure consultant notes: ED note. I have reviewed the results of the following tests: As above. I have discussed the care of this patient with the following independent historian: , RN. I have independently interpreted the following test below: EKG. I have discussed the management of this patient with the following physician: Dr. Oliveros Past Medical History Past Medical History: Cancer, Diabetes Mellitus, Hypertension Additional Past Medical History / Comment(s): BASAL CELL left leg. CARDIAC HISTORY PER DR. MILLARD. History of Any Multi-Drug Resistant Organisms: None Reported Past Surgical History: Cholecystectomy, Pacemaker Additional Past Surgical History / Comment(s): BASAL CELL removed from left leg WITH MAC. Past Anesthesia/Blood Transfusion Reactions: No Reported Reaction Additional Past Anesthesia/Blood Transfusion Reaction / Comment(s): . Type of Cardiac Device: Permanent Pacemaker Device Placement Date:: 07/2008,02/2016 Past Psychological History: No Psychological Hx Reported Smoking Status: Never smoker Past Alcohol Use History: None Reported Past Drug Use History: None Reported - Past Family History Sister(s) Family Medical History: Cancer Medications and Allergies Home Medications Medication Instructions Recorded Confirmed Type Aspirin 81 mg PO DAILY 04/07/15 03/23/24 History traMADol HCl [Ultram] 50 mg PO TID 07/02/20 03/23/24 History Ibuprofen [Motrin Ib] 600 mg PO TID 11/09/21 03/23/24 History Latanoprost/Pf [Latanoprost 0.005% 1 drop BOTH EYES HS 11/09/21 03/23/24 History Eye Drop] Montelukast [Singulair] 10 mg PO HS 11/09/21 03/23/24 History Spironolactone 25 mg PO HS 11/09/21 03/23/24 History Tamsulosin HCl [Flomax] 0.4 mg PO HS 11/09/21 03/23/24 History carvediloL [Coreg] 25 mg PO BID 11/09/21 03/23/24 History Brimonidine Tartrate [Alphagan P 1 drops LEFT EYE BID 03/23/24 03/23/24 History 0.2% Ophth Soln] Inclisiran Sodium [Leqvio] 284 mg SQ Q182D 03/23/24 03/23/24 History Loratadine [Claritin] 10 mg PO DAILY 03/23/24 03/23/24 History lisinopriL [Zestril] 20 mg PO HS 03/23/24 03/23/24 History Allergies Allergy/AdvReac Type Severity Reaction Status Date / Time codeine AdvReac Itching Verified 03/23/24 11:47 Physical Exam Vitals: Vital Signs Temp Pulse Pulse Resp BP Pulse Ox 03/23/24 15:05 65 18 140/83 96 03/23/24 13:35 81 18 121/94 96 03/23/24 11:43 60 18 106/64 95 03/23/24 10:49 64 18 98/61 95 03/23/24 09:43 62 62 18 121/72 98 03/23/24 09:26 97.9 F 79 20 125/81 98 Intake and Output 03/23/24 03/23/24 03/23/24 06:59 14:59 22:59 Other: Weight 110.223 kg Results CBC & Chem 7: 03/23/24 09:48 03/23/24 09:48 Labs: Abnormal Lab Results - Last 24 Hours (Table) 03/23/24 03/23/24 03/23/24 Range/Units 09:48 09:48 09:48 WBC 11.2 H (3.8-10.6) k/uL RBC 4.19 L (4.30-5.90) m/uL Hgb 12.9 L (13.0-17.5) gm/dL Hct 38.5 L (39.0-53.0) % Neutrophils # 8.3 H (1.3-7.7) k/uL D-Dimer 20.91 H (<0.60) mg/L FEU Sodium 135 L (137-145) mmol/L Chloride 109 H (98-107) mmol/L Carbon Dioxide 21 L (22-30) mmol/L Glucose 112 H (74-99) mg/dL
[2024-03-23 17:00] VITALS: BP 134/84; PULSE 71
[2024-03-23] MEDS ORDERED: carvediloL 12.5 MG TAB PO SCH (17:30)
[2024-03-23] MEDS ORDERED: NITROGLYCERIN OINT 1 INCH/GM PACKET TOPICAL SCH (18:00)
[2024-03-23] MEDS ORDERED: SPIRONOLACTONE 25 MG TAB PO SCH (21:00)
[2024-03-23] MEDS ORDERED: BRIMONIDINE TARTRATE 0.2% DROPS 5 ML BTL LEFT EYE SCH (21:00)
[2024-03-23] MEDS ORDERED: LATANOPROST 0.005% OPHTH DROPS 2.5 ML BTL BOTH EYES SCH (21:00)
[2024-03-23] MEDS ORDERED: MONTELUKAST 10 MG TAB PO SCH (21:00)
[2024-03-23] MEDS ORDERED: TAMSULOSIN 0.4 MG CAP.ER.24H PO SCH (21:00)
[2024-03-23] MEDS ORDERED: lisinopriL 20 MG TAB PO SCH (21:00)
[2024-03-24] MEDS ORDERED: LORATADINE 10 MG TAB PO SCH (09:00)
[2024-03-24] MEDS ORDERED: ASPIRIN 325 MG TAB PO SCH (09:00)
[2024-03-24] MEDS ORDERED: ASPIRIN 81 MG PO SCH (09:00)
[2024-03-24] MEDS ORDERED: ENOXAPARIN 40 MG/0.4 ML SYRINGE SQ SCH (09:00)
== END 2024-03-23 16:59 | disposition home or self-care (01) ==
LOC: EC 09:23 → 6NMEDSUR 12:41
PROVIDERS: ADMIT Family Medicine; ATTEND Family Medicine
DX: R07.89 Other chest pain (principal); R79.89 Other specified abnormal findings of blood chemistry; I11.0 Hypertensive heart disease with heart failure; I50.20 Unspecified systolic (congestive) heart failure; D72.829 Elevated white blood cell count, unspecified; E11.9 Type 2 diabetes mellitus without complications; E78.00 Pure hypercholesterolemia, unspecified; I25.10 Atherosclerotic heart disease of native coronary artery without angina pectoris; I45.10 Unspecified right bundle-branch block; I49.5 Sick sinus syndrome; N40.0 Benign prostatic hyperplasia without lower urinary tract symptoms; Z79.82 Long term (current) use of aspirin; Z95.0 Presence of cardiac pacemaker; D64.9 Anemia, unspecified
CPT/HCPCS: 96374; 99285; 36415; 93005; 85379; 80053; 83735; 84484; 85025; 85610; 85730; 71046; 71275; 74174; G0378; J2060; Q9967

== ENCOUNTER 2024-05-08 11:04 | Observation (INO) | payer MEDICARE, OTHER ==
[2024-05-08 11:59] LABS: Basophils # (A) 0.2 k/uL (0-0.2); Basophils % (A) 1 %; Eosinophils # (A) 0.2 k/uL (0-0.7); Eosinophils % (A) 2 %; HCT 39.8 % (39.0-53.0); Lymphocytes # (A) 1.2 k/uL (1.0-4.8); Lymphocytes % (A) 11 %; MCH 29.9 pg (25.0-35.0); MCHC 32.7 g/dL (31.0-37.0); MCV 91.4 fL (80.0-100.0); Mean Platelet Volume 8.5; Monocytes # (A) 1.1 k/uL (0-1.0); Monocytes % (A) 9 %; Neutrophils # (A) 8.9 k/uL (1.3-7.7); Neutrophils % (A) 75 %; Platelet Count 432 k/uL (150-450); RBC 4.36 m/uL (4.30-5.90); RDW 13.8 % (11.5-15.5); WBC 11.8 k/uL (3.8-10.6)
[2024-05-08 12:08] LABS: INR 1.2 (<1.2); Partial Thromboplastin Time 29.8 sec (22.0-30.0); Prothrombin Time 12.9 sec (10.0-12.5)
--- NOTE | 2024-05-08 12:09 | XR ---
EXAMINATION TYPE: XR chest 2V DATE OF EXAM: 05/08/2024 COMPARISON: 03/23/2024 HISTORY: 73-year-old male with chest pain TECHNIQUE: PA and lateral views FINDINGS: Left anterior chest wall pacemaker generator with right atrial and ventricular leads. Surgical clips at the GE junction and right upper quadrant. Heart upper limits of normal in size. Mild hyperinflatio n. No consolidation or pleural effusion seen. IMPRESSION: Mild hyperinflation may relate to a depth of inspiration or underlying emphysema. No definite acute p rocess.
[2024-05-08 12:11] LABS: ALT 17 U/L (4-49); AST 43 U/L (17-59); African American GFR (CKD) 55 (>60 ml/min/1.73 sqM); Albumin 3.3 g/dL (3.5-5.0); Alkaline Phosphatase 76 U/L (38-126); Anion Gap 6 mmol/L; Blood Urea Nitrogen 24 mg/dL (9-20); Calcium 8.9 mg/dL (8.4-10.2); Carbon Dioxide 32 mmol/L (22-30); Chloride 93 mmol/L (98-107); Glucose 115 mg/dL (74-99); Magnesium 1.5 mg/dL (1.6-2.3); Non-African American GFR(CKD) 47 (>60 ml/min/1.73 sqM); Potassium 3.6 mmol/L (3.5-5.1); Sodium 131 mmol/L (137-145); Total Bilirubin 1.2 mg/dL (0.2-1.3); Total Protein 6.6 g/dL (6.3-8.2)
[2024-05-08 12:20] LABS: NT-Pro-B-Type Natriuretic Pept 595 pg/mL
--- NOTE | 2024-05-08 12:30 | ED ---
General Adult HPI - General Chief complaint: Recheck/Abnormal Lab/Rx Stated complaint: Low Heart rate Time Seen by Provider: 05/08/24 11:15 Source: patient Mode of arrival: ambulatory Limitations: no limitations - History of Present Illness Initial comments: 73-year-old male with past medical history of diabetes, hypertension and a syndrome with pacemaker who presents emergency department with weakness and shortness of breath. States that his symptoms have been present since he was discharged from [facility]. He was hospitalized there 6 days ago for UTI with sepsis. He finished antibiotics in the hospital was not discharged h ome on any. He followed up in his primary care office and had normal laboratory studies and urinalysis completed. He saw his doctor again today for being short of breath. There was concern that the patient was having pacemaker malfunction. Patient follows with Dr. Butler. Was recommended that he come in for cardiac evaluation. Patient has a [employer] device. Does admit to chest pain and s hortness of breath. He reports he was recently worked up for PEs. He denies fevers, chills or cough. No other alleviating, precipitating or modifying factors - Related Data Home Medications Medication Instructions Recorded Confirmed Aspirin 81 mg PO DAILY 04/07/15 05/08/24 traMADol HCl [Ultram] 50 mg PO TID PRN 07/02/20 05/08/24 Latanoprost/Pf [Latanoprost 0.005% 1 drop BOTH EYES HS 11/09/21 05/08/24 Eye Drop] Brimonidine Tartrate [Alphagan P 1 drops LEFT EYE BID 03/23/24 05/08/24 0.2% Ophth Soln] Torsemide [Demadex] 20 mg PO DAILY 05/08/24 05/08/24 Allergies Allergy/AdvReac Type Severity Reaction Status Date / Time codeine AdvReac Itching Verified 05/08/24 12:22 Review of Systems ROS Statement: Those systems with pertinent positive or pertinent negative responses have been documented in the HPI. ROS Other: All systems not noted in ROS Statement are negative. Past Medical History Past Medical History: Cancer, Diabetes Mellitus, Hypertension Additional Past Medical History / Comment(s): BASAL CELL left leg. CARDIAC HISTORY PER DR. MILLARD. History of Any Multi-Drug Resistant Organisms: None Reported Past Surgical History: Cholecystectomy, Pacemaker Additional Past Surgical History / Comment(s): BASAL CELL removed from left leg WITH MAC. Past Anesthesia/Blood Transfusion Reactions: No Reported Reaction Additional Past Anesthesia/Blood Transfusion Reaction / Comment(s): . Type of Cardiac Device: Permanent Pacemaker Device Placement Date:: 07/2008,02/2016 Past Psychological History: No Psychological Hx Reported Smoking Status: Never smoker Past Alcohol Use History: None Reported Past Drug Use History: None Reported - Past Family History Sister(s) Family Medical History: Cancer General Exam Limitations: no limitations General appearance: alert, in no apparent distress Head exam: Present: atraumatic, normocephalic, normal inspection Eye exam: Present: normal appearance, PERRL, EOMI. Absent: scleral icterus, conjunctival injection, periorbital swelling ENT exam: Present: normal exam, mucous membranes moist Neck exam: Present: normal inspection. Absent: tenderness, meningismus, lymphadenopathy Respiratory exam: Present: normal lung sounds bilaterally. Absent: respiratory distress, wheezes, rales, rhonchi, stridor Cardiovascular Exam: Present: regular rate, normal rhythm, normal heart sounds. Absent: systolic murmur, diastolic murmur, rubs, gallop, clicks GI/Abdominal exam: Present: soft, normal bowel sounds. Absent: distended, tenderness, guarding, rebound, rigid Extremities exam: Present: normal inspection, full ROM, normal capillary refill. Absent: tenderness, pedal edema, joint swelling, calf tenderness Back exam: Present: normal inspection Neurological exam: Present: alert, oriented X3, CN II-XII intact Psychiatric exam: Present: normal affect, normal mood Skin exam: Present: warm, dry, intact, normal color. Absent: rash Course Vital Signs 05/08/24 05/08/24 05/08/24 11:12 13:36 15:24 Temperature 97.8 F Pulse Rate 90 84 82 Respiratory 18 18 18 Rate Blood Pressure 123/82 103/90 107/75 O2 Sat by Pulse 96 96 96 Oximetry 05/08/24 05/08/24 05/09/24 17:59 20:58 00:32 Temperature Pulse Rate 98 83 80 Respiratory 18 17 Rate Blood Pressure 121/90 121/90 120/89 O2 Sat by Pulse 97 94 L 95 Oximetry 05/09/24 05/09/24 05/09/24 04:35 08:14 11:03 Temperature 98.0 F 97.9 F Pulse Rate 80 87 84 Respiratory 16 18 18 Rate Blood Pressure 110/58 136/70 114/84 O2 Sat by Pulse 96 94 L 95 Oximetry Medical Decision Making - Medical Decision Making Was pt. sent in by a medical professional or institution (BRODY Coronel, MANUFACTURING SYSTEMS ENGINEER, urgent care, hospital, or alf...) When possible be specific @ -Patient is sent in from primary care Did you speak to anyone other than the patient for history (EMS, parent, family, police, friend...)? What history was obtained from this source @ -spoke with primary care and the Did you review nursing and triage notes (agree or disagree)? Why? @ -I reviewed and agree with nursing and triage notes Were old charts reviewed (outside hosp., previous admission, EMS record, old EKG, old radiological studies, urgent care reports/EKG's, alf records)? Report findings @ -No old charts were reviewed Differential Diagnosis (chest pain, altered mental status, abdominal pain women, abdominal pain men, vaginal bleeding, weakness, fever, dyspnea, syncope, headache, dizziness, GI bleed, back pain, seizure, CVA, palpatations, mental health, musculoskeletal)? @ -Differential Weakness: Hypoglycemia, shock, sepsis, hyponatremia, anemia, infection, HI, ETOH, adverse medicine reaction, overdose, stroke, this is not meant to be an all-inclusive list. EKG interpreted by me (3pts min.). @ -Patient demonstrates sinus rhythm with PVC. Rate of 93. QRS 139. QTc of 473. Right bundle branch block. No acute ST segment elevations. No pacer spikes X-rays interpreted by me (1pt min.). @Yes and demonstrates no acute process CT interpreted by me (1pt min.). @ -None done U/S interpreted by me (1pt. min.). @ -None done What testing was considered but not performed or refused? (CT, X-rays, U/S, labs)? Why? @ -CT chest was considered however the patient reports that he just had one less than a week ago at [facility]. We will obtain these records What meds were considered but not given or refused? Why? @ -None Did you discuss the management of the patient with other professionals (steve dinh i.e. BRODY Coronel, MANUFACTURING SYSTEMS ENGINEER, lab, RT, psych nurse, psychosocial rehabilitation counselor, demo coordinator, teacher, loan review officer, registered nurse hh case manager)? Give summary @ -Spoke with Dr. Gamble for admission Was smoking cessation discussed for >3mins.? @ -No Was critical care preformed (if so, how long)? @ -No Were there social determinants of health that impacted care today? How? (Homelessness, low income, unemployed, alcoholism, drug addiction, transportation, low edu. Level, literacy, decrease access to med. care, long term, rehab)? @ -No Was there de-escalation of care discussed even if they declined (Discuss DNR or withdrawal of care, Hospice)? DNR status @ -No What co-morbidities impacted this encounter? (DM, HTN, Smoking, COPD, CAD, Cancer, CVA, ARF, Chemo, Hep., AIDS, mental health diagnosis, sleep apnea, morbid obesity)? @ -Sick sinus syndrome Was patient admitted / discharged? Hospital course, mention meds given and route, prescriptions, significant lab abnormalities, going to OR and other pertinent info. @ -Upon arrival patient seen and evaluated in room 16. Thorough history and physical exam was performed. Patient sent in from primary care for further workup. Laboratory studies are conducted. I will attempt to obtain records from [facility] to save the patient some radiation exposure as he states he just had a CAT scan of his chest performed. We did interrogate the patient's device. Cardiology will be consulted. Patient awaiting a bed on the floor in stable condition Undiagnosed new problem with uncertain prognosis? @ -Yes Drug Therapy requiring intensive monitoring for toxicity (Heparin, Nitro, Insulin, Cardizem)? @ -No Were any procedures done? @ -No Diagnosis/symptom? @ -Acute exertional dyspnea, weakness, history of sick sinus syndrome, evaluation of pacemaker Acute, or Chronic, or Acute on Chronic? @ -Acute Uncomplicated (without systemic symptoms) or Complicated (systemic symptoms)? @ -Complicated Side effects of treatment? @ -No Exacerbation, Progression, or Severe Exacerbation? @ -No Poses a threat to life or bodily function? How? (Chest pain, USA, HI, pneumonia, PE, COPD, DKA, ARF, appy, cholecystitis, CVA, Diverticulitis, Homicidal, Suicidal, threat to staff... and all critical care pts) @ -No - Lab Data Result diagrams: 05/09/24 06:06 05/10/24 04:16 Lab Results 05/08/24 05/08/24 05/08/24 Range/Units 11:42 11:42 11:42 WBC 11.8 H (3.8-10.6) k/uL RBC 4.36 (4.30-5.90) m/uL Hgb 13.0 (13.0-17.5) gm/dL Hct 39.8 (39.0-53.0) % MCV 91.4 (80.0-100.0) fL MCH 29.9 (25.0-35.0) pg MCHC 32.7 (31.0-37.0) g/dL RDW 13.8 (11.5-15.5) % Plt Count 432 (150-450) k/uL MPV 8.5 Neutrophils % 75 % Lymphocytes % 11 % Monocytes % 9 % Eosinophils % 2 % Basophils % 1 % Neutrophils # 8.9 H (1.3-7.7) k/uL Lymphocytes # 1.2 (1.0-4.8) k/uL Monocytes # 1.1 H (0-1.0) k/uL Eosinophils # 0.2 (0-0.7) k/uL Basophils # 0.2 (0-0.2) k/uL PT 12.9 H (10.0-12.5) sec INR 1.2 H (<1.2) APTT 29.8 (22.0-30.0) sec Sodium 131 L (137-145) mmol/L Potassium 3.6 (3.5-5.1) mmol/L Chloride 93 L (98-107) mmol/L Carbon Dioxide 32 H (22-30) mmol/L Anion Gap 6 mmol/L BUN 24 H (9-20) mg/dL Creatinine 1.44 H (0.66-1.25) mg/dL Est GFR (CKD-EPI)AfAm 55 (>60 ml/min/1.73 sqM) Est GFR (CKD-EPI)NonAf 47 (>60 ml/min/1.73 sqM) Glucose 115 H (74-99) mg/dL Calcium 8.9 (8.4-10.2) mg/dL Magnesium 1.5 L (1.6-2.3) mg/dL Total Bilirubin 1.2 (0.2-1.3) mg/dL AST 43 (17-59) U/L ALT 17 (4-49) U/L Alkaline Phosphatase 76 (38-126) U/L Troponin I (0.000-0.034) ng/mL NT-Pro-B Natriuret Pep 595 pg/mL Total Protein 6.6 (6.3-8.2) g/dL Albumin 3.3 L (3.5-5.0) g/dL TSH 2.930 (0.465-4.680) mIU/L Urine Color Urine Appearance (Clear) Urine pH (5.0-8.0) Ur Specific [place] (1.001-1.035) Urine Protein (Negative) Urine Glucose (UA) (Negative) Urine Ketones (Negative) Urine Blood (Negative) Urine Nitrite (Negative) Urine Bilirubin (Negative) Urine Urobilinogen (<2.0) mg/dL Ur Leukocyte Esterase (Negative) 05/08/24 05/08/24 Range/Units 11:42 13:32 WBC (3.8-10.6) k/uL RBC (4.30-5.90) m/uL Hgb (13.0-17.5) gm/dL Hct (39.0-53.0) % MCV (80.0-100.0) fL MCH (25.0-35.0) pg MCHC (31.0-37.0) g/dL RDW (11.5-15.5) % Plt Count (150-450) k/uL MPV Neutrophils % % Lymphocytes % % Monocytes % % Eosinophils % % Basophils % % Neutrophils # (1.3-7.7) k/uL Lymphocytes # (1.0-4.8) k/uL Monocytes # (0-1.0) k/uL Eosinophils # (0-0.7) k/uL Basophils # (0-0.2) k/uL PT (10.0-12.5) sec INR (<1.2) APTT (22.0-30.0) sec Sodium (137-145) mmol/L Potassium (3.5-5.1) mmol/L Chloride (98-107) mmol/L Carbon Dioxide (22-30) mmol/L Anion Gap mmol/L BUN (9-20) mg/dL Creatinine (0.66-1.25) mg/dL Est GFR (CKD-EPI)AfAm (>60 ml/min/1.73 sqM) Est GFR (CKD-EPI)NonAf (>60 ml/min/1.73 sqM) Glucose (74-99) mg/dL Calcium (8.4-10.2) mg/dL Magnesium (1.6-2.3) mg/dL Total Bilirubin (0.2-1.3) mg/dL AST (17-59) U/L ALT (4-49) U/L Alkaline Phosphatase (38-126) U/L Troponin I 0.029 (0.000-0.034) ng/mL NT-Pro-B Natriuret Pep pg/mL Total Protein (6.3-8.2) g/dL Albumin (3.5-5.0) g/dL TSH (0.465-4.680) mIU/L Urine Color Light Yellow Urine Appearance Clear (Clear) Urine pH 5.0 (5.0-8.0) Ur Specific [place] 1.009 (1.001-1.035) Urine Protein Negative (Negative) Urine Glucose (UA) Negative (Negative) Urine Ketones Trace H (Negative) Urine Blood Negative (Negative) Urine Nitrite Negative (Negative) Urine Bilirubin Negative (Negative) Urine Urobilinogen <2.0 (<2.0) mg/dL Ur Leukocyte Esterase Negative (Negative) Disposition Clinical Impression: Chest pain, Palpitations, Exertional dyspnea, Hypomagnesemia Disposition: ADMITTED IP TO THIS [facility] Condition: Stable Is patient prescribed a controlled substance at d/c from ED?: No Time of Disposition: 14:03 Decision to Admit Reason: Admit from [facility] Decision Date: 05/08/24 Decision Time: 14:03
[2024-05-08 13:51] LABS: Appearance,Urine Clear (Clear); Bilirubin,Urine Negative (Negative); Blood,Urine Negative (Negative); Color,Urine Light Yellow; Glucose,Urine (UA) Negative (Negative); Ketones,Urine Trace (Negative); Leukocyte Esterase,Urine Negative (Negative); Nitrite,Urine Negative (Negative); Protein,Urine Negative (Negative); Specific Gravity,Urine 1.009 (1.001-1.035); Urobilinogen,Urine <2.0 mg/dL (<2.0)
[2024-05-08] MEDS ORDERED: NALOXONE 0.4 MG/ML 1 ML VIAL IV PRN (14:03)
[2024-05-08] MEDS: MAGNESIUM SULFATE-D5W PMX 1 GM in DEXTROSE/WATER 1 100ML.BAG IVPB SCH (15:22)
--- NOTE | 2024-05-08 16:05 | P.HPIM ---
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 States that his symptoms have been present since he was discharged from [facility]. He was hospitalized there 6 days ago for UTI with sepsis. He finished antibiotics in the hospital but was not discharged home on any. He followed up in his primary care office and had normal foolow up laboratory studies and urinalysis. He saw his doctor again today for being short of breat h. There was concern that the patient was having pacemaker malfunction. Over the past several weeks patient has been having worsening shortness of breath, dizziness, palpitations as well as nausea with short distance ambulation. Patient follows with Dr. Butler. Was recommended that he come in for cardiac evaluation. Patient has a [employer] device. No significant chest discomfort. He denies fevers, chills or cough. No other alleviating, precipitating or modifying factors. Of note patient was admitted to [facility] last month for chest discomfort, had thoracic aorta CT which did not show aortic dissection. Review of Systems complete review of system performed, pertinent positives per HPI, otherwise negative Past Medical History Past Medical History: Cancer, Heart Failure Additional Past Medical History / Comment(s): BASAL CELL left leg. 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 Past Anesthesia/Blood Transfusion Reactions: No Reported Reaction Additional Past Anesthesia/Blood Transfusion Reaction / Comment(s): . Type of Cardiac Device: Permanent Pacemaker Device Placement Date:: 07/2008,02/2016 Past Psychological History: No Psychological Hx Reported Smoking Status: Never smoker Past Alcohol Use History: None Reported Past Drug Use History: None Reported - Past Family History Sister(s) Family Medical History: Cancer Medications and Allergies Home Medications Medication Instructions Recorded Confirmed Type Aspirin 81 mg PO DAILY 04/07/15 05/08/24 History traMADol HCl [Ultram] 50 mg PO TID PRN 07/02/20 05/08/24 History Latanoprost/Pf [Latanoprost 0.005% 1 drop BOTH EYES HS 11/09/21 05/08/24 History Eye Drop] Brimonidine Tartrate [Alphagan P 1 drops LEFT EYE BID 03/23/24 05/08/24 History 0.2% Ophth Soln] Torsemide [Demadex] 20 mg PO DAILY 05/08/24 05/08/24 History Allergies Allergy/AdvReac Type Severity Reaction Status Date / Time codeine AdvReac Itching Verified 05/08/24 12:22 Physical Exam Vitals: Vital Signs Temp Pulse Resp BP Pulse Ox 05/08/24 15:24 82 18 107/75 96 05/08/24 13:36 84 18 103/90 96 05/08/24 11:12 97.8 F 90 18 123/82 96 Intake and Output 05/08/24 05/08/24 05/08/24 06:59 14:59 22:59 Other: Weight 101.605 kg Constitutional: No acute distress, conversant, pleasant Eyes:Anicteric sclerae, moist conjunctiva, no lid-lag, PERRLA, ENMT: Oropharynx clear, no erythema, exudates Neck: Supple, FROM, no masses, or JVD, No carotid bruits, No thyromegaly Lungs: Clear to auscultation, Clear to percussion, Normal respiratory effort, no accessory muscle use Cardiovascular: Heart regular in rate and rhythm, No murmurs, gallops, or rubs, No peripheral edema Abdominal: Soft, Nontender, no guarding, rebound or rigidity, Normoactive bowel sounds, No hepatomegaly, No splenomegaly, No palpable mass Skin: Normal temperature, tone, texture, turgor, no induration, No subcutaneous nodules, No rash, lesions, No ulcers Extremities: No digital cyanosis, No clubbing, Pedal pulses intact and symmetrical, Radial pulses intact and symmetrical, No calf tenderness Psychiatric: Alert and oriented to person, place and time, appropriate affect, intact judgement Neuro: Muscles Strength 5/5 in all 4 extremities, Sensation to light touch bushra sly present throughout, Cranial nerves II-XII grossly intact, no focal sensory deficits Results CBC & Chem 7: 05/08/24 11:42 05/08/24 11:42 Labs: Abnormal Lab Results - Last 24 Hours (Table) 05/08/24 05/08/24 05/08/24 Range/Units 11:42 11:42 11:42 WBC 11.8 H (3.8-10.6) k/uL Neutrophils # 8.9 H (1.3-7.7) k/uL Monocytes # 1.1 H (0-1.0) k/uL PT 12.9 H (10.0-12.5) sec INR 1.2 H (<1.2) Sodium 131 L (137-145) mmol/L Chloride 93 L (98-107) mmol/L Carbon Dioxide 32 H (22-30) mmol/L BUN 24 H (9-20) mg/dL Creatinine 1.44 H (0.66-1.25) mg/dL Glucose 115 H (74-99) mg/dL Magnesium 1.5 L (1.6-2.3) mg/dL Albumin 3.3 L (3.5-5.0) g/dL Urine Ketones (Negative) 05/08/24 Range/Units 13:32 WBC (3.8-10.6) k/uL Neutrophils # (1.3-7.7) k/uL Monocytes # (0-1.0) k/uL PT (10.0-12.5) sec INR (<1.2) Sodium (137-145) mmol/L Chloride (98-107) mmol/L Carbon Dioxide (22-30) mmol/L BUN (9-20) mg/dL Creatinine (0.66-1.25) mg/dL Glucose (74-99) mg/dL Magnesium (1.6-2.3) mg/dL Albumin (3.5-5.0) g/dL Urine Ketones Trace H (Negative) Assessment and Plan Plan: Shortness of breath History of congestive heart failure, systolic, stable, currently euvolemic evaluation by cardiology States he recently had an echocardiogram and was evaluated for pulmonary emboli Admit on telemetry pacemaker evaluation Chronic CAD, 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
[2024-05-08] MEDS: BRIMONIDINE TARTRATE 0.2% DROPS 5 ML BTL LEFT EYE SCH (20:56)
[2024-05-08] MEDS: LATANOPROST 0.005% OPHTH DROPS 2.5 ML BTL BOTH EYES SCH (20:57)
[2024-05-09] MEDS: ASPIRIN 81 MG PO SCH (08:37)
[2024-05-09] MEDS: TORSEMIDE 20 MG TAB PO SCH (08:37)
[2024-05-09 08:52] LABS: Basophils # (A) 0.11 X 10*3/uL (0.00-0.10); Basophils % (A) 1.2 %; Eosinophils # (A) 0.25 X 10*3/uL (0.04-0.35); Eosinophils % (A) 2.8 %; HCT 35.4 % (39.6-50.0); HGB 11.6 g/dL (13.0-17.0); Lymphocytes # (A) 1.28 X 10*3/uL (0.90-5.00); Lymphocytes % (A) 14.4 %; MCH 29.4 pg (27.0-32.0); MCHC 32.8 g/dL (32.0-37.0); MCV 89.6 FL (80.0-97.0); Mean Platelet Volume 10.8 FL (9.5-12.2); Monocytes # (A) 1.35 X 10*3/uL (0.20-1.00); Monocytes % (A) 15.2 %; NRBC Per 100 WBC 0 X 10*3/uL (0.00-0.01); Neutrophils # (A) 5.81 X 10*3/uL (1.80-7.70); Neutrophils % (A) 65.7 %; Platelet Count 366 X 10*3/uL (140-440); RBC 3.95 X 10*6/uL (4.40-5.60); RDW 13.7 % (11.5-14.5); WBC 8.86 X 10*3/uL (4.50-10.00)
[2024-05-09 09:06] LABS: BUN/Creat Ratio 15.85 Ratio (12.00-20.00); Blood Urea Nitrogen 20.6 mg/dL (9.0-27.0); Calcium 8.3 mg/dL (8.7-10.3); Carbon Dioxide 28.3 mmol/L (21.6-31.8); Chloride 94 mmol/L (96-109); Glucose 120 mg/dL (70-110); Potassium 3.4 mmol/L (3.5-5.5); Sodium 134 mmol/L (135-145)
--- NOTE | 2024-05-09 12:15 | P.CRDCN ---
History of Present Illness History of present illness: HISTORY OF PRESENT ILLNESS: This is a 73-year-old male with a past medical history significant for mild nonobstructive CAD, nonischemic cardiomyopathy, peripheral arterial disease, hyperlipidemia with statin intolerance, and sick sinus syndrome status post permanent pacemaker. Patient follows in the office with Dr. Butler. We have been asked to see the patient in consultation for chest pain. Patient was recently hospitalized in April 2024 at [facility] for sepsis/UTI. Patient examined at the bedside. Patient reports he has been feeling short of breath and dizzy. He reports feeling really tired and states yesterday he "just wanted to ". He reports 20-25 lb weight loss in 2 weeks. He states he has no appetite and is not eating. He reports chest discomfort prior to his hospitalization at [facility] earlier this month. DIAGNOSTICS: - EKG appears regular. No definite P waves. Likely sinus mechanism. Can not rule out underlying afib. - Chest xray mild hyperinflation may relate to depth of inspiration or underlying emphysema. No definite acute process. - Laboratory data: WBC 11.8. Hemoglobin 13.0. Platelet count 432. INR 1.2. Sodium 131. Potassium 3.6. BUN 24. Creatinine 1.44. Magnesium 1.5. Troponin negative x 3. proBNP 595. - Current home cardiac medications include Demadex 20 mg daily and aspirin 81 mg daily - Most recent echocardiogram obtained in April 2024 revealed ejection fraction 55 to 60% with mild to moderate MR - Cardiac catheterization history: June 2020 revealing mild nonobstructive CAD REVIEW OF SYSTEMS: At the time of my exam: CONSTITUTIONAL: Denies fever or chills. HEENT: Denies blurred vision, vision changes, or eye pain. Denies hemoptysis CARDIOVASCULAR: Denies chest pain. Denies orthopnea. Denies PND. Denies palpitations RESPIRATORY: Denies shortness of breath. GASTROINTESTINAL: Denies abdominal pain. Denies nausea or vomiting. HEMATOLOGIC: Denies bleeding disorders. GENITOURINARY: Denies any blood in urine. SKIN: Denies pruitis. Denies rash. PHYSICAL EXAM: VITAL SIGNS: Reviewed. GENERAL: Well-developed in no acute distress. HEENT: Head is normocephalic. Pupils are equal, round. Sclerae anicteric. Mucous membranes of the mouth are moist. Neck supple. No JVD or thyromegaly LUNGS: Respirations even and unlabored. Lungs essentially clear to auscultation bilaterally. HEART: Regular rate and rhythm. S1 and S2 heard. ABDOMEN: Soft. Nondistended. Nontender. EXTREMITIES: Normal range of motion. No clubbing or cyanosis. Peripheral pulses intact. No lower extremity edema NEUROLOGIC: Awake and alert. Oriented x 3. ASSESSMENT: Shortness of breath Dizziness/lightheaded Generalized weakness 20 lb weight loss over 2 weeks with decreased oral intake Recent hospitalization due to sepsis and UTI at [facility], April 2024 Mild nonobstructive CAD History of nonischemic cardiomyopathy with initial EF 25 to 30%, since improved to 55 to 60% Hyperlipidemia with statin intolerance Sick sinus syndrome status post permanent pacemaker implantation Peripheral arterial disease with occluded anterior tibial artery History of aryan and appendectomy PLAN: Awaiting device interrogation. EKG appears regular. No definite P waves. Likely sinus mechanism. Can not rule out underlying afib. Continue telemetry monitoring to assess for atrial fibrillation Discontinue Demadex Recommend GI consultation. Will defer to internal medicine. Check sed rate and CRP No plans for stress testing or cardiac cath at this time Further recommendations pending patient course Nurse practitioner note has been reviewed by physician. Signing provider agrees with the documented findings, assessment, and plan of care documented by EMAIL ENGINEER as a scribe. Past Medical History Past Medical History: Cancer, Heart Failure Additional Past Medical History / Comment(s): BASAL CELL left leg. 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 Past Anesthesia/Blood Transfusion Reactions: No Reported Reaction Additional Past Anesthesia/Blood Transfusion Reaction / Comment(s): . Type of Cardiac Device: Permanent Pacemaker Device Placement Date:: 07/2008,02/2016 Past Psychological History: No Psychological Hx Reported Smoking Status: Never smoker Past Alcohol Use History: None Reported Past Drug Use History: None Reported - Past Family History Sister(s) Family Medical History: Cancer Medications and Allergies Home Medications Medication Instructions Recorded Confirmed Type Aspirin 81 mg PO DAILY 04/07/15 05/08/24 History traMADol HCl [Ultram] 50 mg PO TID PRN 07/02/20 05/08/24 History Latanoprost/Pf [Latanoprost 0.005% 1 drop BOTH EYES HS 11/09/21 05/08/24 History Eye Drop] Brimonidine Tartrate [Alphagan P 1 drops LEFT EYE BID 03/23/24 05/08/24 History 0.2% Ophth Soln] Torsemide [Demadex] 20 mg PO DAILY 05/08/24 05/08/24 History Allergies Allergy/AdvReac Type Severity Reaction Status Date / Time codeine AdvReac Itching Verified 05/08/24 12:22 Physical Exam Vitals: Vital Signs Temp Pulse Resp BP Pulse Ox 05/09/24 04:35 80 16 110/58 96 05/09/24 00:32 80 120/89 95 05/08/24 20:58 83 17 121/90 94 L 05/08/24 17:59 98 18 121/90 97 05/08/24 15:24 82 18 107/75 96 05/08/24 13:36 84 18 103/90 96 05/08/24 11:12 97.8 F 90 18 123/82 96 Results 05/09/24 06:06 05/09/24 06:06 Cardiac Enzymes 05/08/24 05/08/24 05/08/24 Range/Units 11:42 11:42 15:18 AST 43 (17-59) U/L Troponin I 0.029 0.020 (0.000-0.034) ng/mL 05/08/24 Range/Units 18:19 AST (17-59) U/L Troponin I 0.022 (0.000-0.034) ng/mL Coagulation 05/08/24 Range/Units 11:42 PT 12.9 H (10.0-12.5) sec APTT 29.8 (22.0-30.0) sec CBC 05/08/24 Range/Units 11:42 WBC 11.8 H (3.8-10.6) k/uL RBC 4.36 (4.30-5.90) m/uL Hgb 13.0 (13.0-17.5) gm/dL Hct 39.8 (39.0-53.0) % Plt Count 432 (150-450) k/uL Comprehensive Metabolic Panel 05/08/24 Range/Units 11:42 Sodium 131 L (137-145) mmol/L Potassium 3.6 (3.5-5.1) mmol/L Chloride 93 L (98-107) mmol/L Carbon Dioxide 32 H (22-30) mmol/L BUN 24 H (9-20) mg/dL Creatinine 1.44 H (0.66-1.25) mg/dL Glucose 115 H (74-99) mg/dL Calcium 8.9 (8.4-10.2) mg/dL AST 43 (17-59) U/L ALT 17 (4-49) U/L Alkaline Phosphatase 76 (38-126) U/L Total Protein 6.6 (6.3-8.2) g/dL Albumin 3.3 L (3.5-5.0) g/dL Current Medications Generic Name Dose Route Start Last Admin Trade Name Freq PRN Reason Stop Dose Admin Aspirin 81 mg 05/09/24 09:00 Aspirin 81 Mg PO DAILY [facility] Brimonidine Tartrate 1 drops 05/08/24 21:00 05/08/24 20:56 Brimonidine Tartrate 0.2% Drops 5 Ml Btl LEFT EYE 1 drops BID JACQUELINE Administration Latanoprost 1 drops 05/08/24 21:00 05/08/24 20:57 Latanoprost 0.005% Ophth Drops 2.5 Ml Btl BOTH EYES 1 drops HS JACQUELINE Administration Naloxone HCl 0.2 mg 05/08/24 14:03 Naloxone 0.4 Mg/Ml 1 Ml Vial IV Q2M PRN Opioid Reversal Torsemide 20 mg 05/09/24 09:00 Torsemide 20 Mg Tab PO DAILY JACQUELINE 05/08/24 11:42 05/08/24 11:42
--- NOTE | 2024-05-09 15:36 | P.PN ---
Subjective Progress Note Date: 05/09/24 Principal diagnosis: dizziness Still having symptoms of dizziness and sob. States he has not been eating well due to stomach upset over the past month. He has been suffering from constipation as well. Objective - Vital Signs Vital signs: Vital Signs Temp 97.9 F 05/09/24 11:03 Pulse 84 05/09/24 11:03 Resp 18 05/09/24 11:03 BP 114/84 05/09/24 11:03 Pulse Ox 95 05/09/24 11:03 FiO2 Intake & Output 05/08/24 05/09/24 05/09/24 18:59 06:59 18:59 Weight 101.605 kg 101.605 kg - Exam Constitutional: No acute distress, conversant, pleasant Eyes:Anicteric sclerae, moist conjunctiva, no lid-lag, PERRLA, ENMT: Oropharynx clear, no erythema, exudates Neck: Supple, FROM, no masses, or JVD, No carotid bruits, No thyromegaly Lungs: Clear to auscultation, Clear to percussion, Normal respiratory effort, no accessory muscle use Cardiovascular: Heart regular in rate and rhythm, No murmurs, gallops, or rubs, No peripheral edema Abdominal: Soft, Nontender, no guarding, rebound or rigidity, Normoactive bowel sounds, No hepatomegaly, No splenomegaly, No palpable mass Skin: Normal temperature, tone, texture, turgor, no induration, No subcutaneous nodules, No rash, lesions, No ulcers Extremities: No digital cyanosis, No clubbing, Pedal pulses intact and symmetrical, Radial pulses intact and symmetrical, No calf tenderness Psychiatric: Alert and oriented to person, place and time, appropriate affect, intact judgement Neuro: Muscles Strength 5/5 in all 4 extremities, Sensation to light touch grossly present throughout, Cranial nerves II-XII grossly intact, no focal sensory deficits - Labs CBC & Chem 7: 05/09/24 06:06 05/09/24 06:06 Labs: Abnormal Lab Results - Last 24 Hours (Table) 05/09/24 05/09/24 Range/Units 06:06 06:06 RBC 3.95 L (4.40-5.60) X 10*6/uL Hgb 11.6 L (13.0-17.0) g/dL Hct 35.4 L (39.6-50.0) % Immature Gran # 0.06 H (0.00-0.04) X 10*3/uL Monocytes # 1.35 H (0.20-1.00) X 10*3/uL Basophils # 0.11 H (0.00-0.10) X 10*3/uL Sodium 134 L (135-145) mmol/L Potassium 3.4 L (3.5-5.5) mmol/L Chloride 94 L (96-109) mmol/L Est GFR (CKD-EPI) 57 L (>=60) Glucose 120 H (70-110) mg/dL Calcium 8.3 L (8.7-10.3) mg/dL Assessment and Plan Plan: Shortness of breath History of congestive heart failure, systolic, stable, currently euvolemic evaluation by cardiology States he recently had an echocardiogram and was evaluated for pulmonary emboli Telemetry pacemaker evaluation D/w cardio Echo Abdominal pain GI upset/constipation Weight loss Symptoms ongoing for the past month Will investigate with CT abd/pelvis GI consult Chronic CAD, 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
[2024-05-09] MEDS: POTASSIUM CHLORIDE ER 20 MEQ TAB.ER PO STA (16:03)
[2024-05-09] MEDS: IOPAMIDOL CONTRAST (ORAL USE) VIAL PO PRN (16:03)
--- NOTE | 2024-05-09 18:16 | CT ---
EXAMINATION TYPE: CT abdomen pelvis wo con CT DLP: 1115 mGycm, Automated exposure control for dose reduction was used. DATE OF EXAM: 05/09/2024 5:49 PM COMPARISON: 17 1424 CLINICAL INDICATION: Male, 73 years old with history of gi upset abd pain.; abdominal pain TECHNIQUE: Axial CT abdomen pelvis wo con;Sagittal and coronal reformats were created on a separate workstation. Contrast used: mL of , (none if empty) Oral contrast used: with Oral Contrast (none if empty) FINDINGS: LOWER CHEST: Unremarkable ABDOMEN LIVER: Unremarkable GALLBLADDER AND BILE DUCTS: Unremarkable. PANCREAS: Unremarkable. SPLEEN: Unremarkable. ADRENAL GLANDS: Unremarkable. KIDNEYS AND URETERS: Nonobstructing left 5 mm calculus. No right renal calculi. No hydronephrosis. PELVIS BLADDER: Unremarkable REPRODUCTIVE: Unremarkable. ABDOMEN & PELVIS STOMACH AND BOWEL: No evidence of bowel obstruction. Scattered colonic diverticula present. PERITONEUM/RETROPERITONEUM: No evidence of pneumoperitoneum or free fluid. VASCULATURE: No evidence of aortic aneurysm. MUSCULOSKELETAL: No acute osseous abnormalities LYMPH NODES: r there is enlarged lymph nodes seen throughout the retroperitoneum and within the abdom en including left external iliac measuring 18 mm, right external iliac measuring 9 mm left periaortic measuring 17 mm as examples. SOFT TISSUE/ABDOMINAL WALL: Unremarkable IMPRESSION: 1. Lymphadenopathy throughout the abdomen concerning for neoplastic process. Further workup recommen ded consider pet/CT clinical correlation advised. 2. Nonobstructing left renal calculus. 3. Colonic diverticulosis.
[2024-05-10 10:02] LABS: ALT 13 U/L (10-49); AST 32 U/L (14-35); Albumin 2.9 g/dL (3.8-4.9); Albumin/Globulin Ratio 1.16 Ratio (1.60-3.17); Alkaline Phosphatase 66 U/L (41-126); Amylase 26 U/L (23-121); BUN/Creat Ratio 16.23 Ratio (12.00-20.00); Blood Urea Nitrogen 21.1 mg/dL (9.0-27.0); Calcium 8.2 mg/dL (8.7-10.3); Carbon Dioxide 28.4 mmol/L (21.6-31.8); Chloride 94 mmol/L (96-109); Globulin 2.5 g/dL (1.6-3.3); Glucose 107 mg/dL (70-110); Lipase 37 U/L (14-60); Magnesium 1.9 mg/dL (1.5-2.4); Phosphorus 3.5 mg/dL (2.4-5.1); Potassium 3.5 mmol/L (3.5-5.5); Sodium 134 mmol/L (135-145); Total Bilirubin 0.7 mg/dL (0.3-1.2); Total Protein 5.4 g/dL (6.2-8.2)
[2024-05-10] MEDS ORDERED: RX INFO: IV CONTRAST WAS GIVEN 1 EACH MISC MISCELLANE PRN (11:43)
--- NOTE | 2024-05-10 12:12 | CA ---
Transthoracic Echo Report Name: Wiley Anna Age: 73 Gender: M : 1950 Exam Date: 05/09/2024 14:43 Exam Location: [place] [facility] Ht (in): 71 Wt (lb): 224 Ordering Physician: Michelle Irvin Attending/Referring Phys: [id number], [place] Maintenance Technician 2Nd Shift Preethi Hanna RDCS Procedure CPT: Indications: LV function, assess valves and WMA Cardiac Hx: Technical Quality: Technically difficult study Contrast 1: Definity Total Dose (mL): 2 Contrast 2: Total Dose (mL): MEASUREMENTS (Male / Female) Normal Values 2D ECHO LV Diastolic Diameter PLAX 5.0 cm 4.2 - 5.9 / 3.9 - 5.3 cm LV Systolic Diameter PLAX 3.6 cm IVS Diastolic Thickness 1.8 cm 0.6 - 1.0 / 0.6 - 0.9 cm LVPW Diastolic Thickness 1.8 cm 0.6 - 1.0 / 0.6 - 0.9 cm LV Relative Wall Thickness 0.7 FINDINGS Left Ventricle Severely increased septal wall thickness. No obvious regional wall motion abnormalities. Left ventricular ejection fraction is estimated at 50-55 %. Right Ventricle Right Atrium Left Atrium Mitral Valve No mitral stenosis. No mitral regurgitation. Aortic Valve No aortic stenosis. No aortic regurgitation. Tricuspid Valve Mild tricuspid regurgitation. Pulmonic Valve Pericardium Small pericardial effusion. Aorta CONCLUSIONS Limited 2-D echo Left ventricular ejection fraction 50-55% Severely increased left ventricular wall thickness Mild asymmetric septal hypertrophy No mitral regurgitation Mild tricuspid regurgitation Small pericardial effusion without tamponade physiology Previewed by: Dr. Gurjit Butler DO (Electronically Signed) Final Date: 10 May 2024 12:11
--- NOTE | 2024-05-10 14:05 | CT ---
EXAMINATION TYPE: CT chest w con DATE OF EXAM: 05/10/2024 COMPARISON: 10/30/2023 CT chest, CT abdomen 05/09/2024 HISTORY: neoplasm CT DLP: 534.4 mGycm, Automated exposure control for dose reduction was used. CONTRAST: Performed injected with 100 mL of Isovue 300. TECHNIQUE: Axial images were obtained at 5 mm thick sections. Reconstructed images are reviewed on [employer] computer in the coronal plane. FINDINGS: Portion of the thyroid visualized is normal. No suspicious lung nodules or focal infiltrates are present. There is a 1.0 cm pretracheal lymph node. No additional enlarged mediastinal adenopathy is evident. No suspicious hilar adenopathy evident. The ascending aorta diameter at the level of the main pulmona ry artery is 3.5 cm. The main pulmonary artery diameter at the bifurcation is 2.7 cm. Small pericard ial effusion may be present. Limited CT sections are obtained through the upper abdomen. Please see CT abdomen and pelvis report A ugust 2023. Adenopathy in the periaortic and retrocaval regions evident. Some retrocrural adenopat hy appears to be present. IMPRESSION: 1. There is a pretracheal lymph node which is enlarged and some retrocrural adenopathy which is promi nent. Please also see CT abdomen and pelvis report 05/09/2024. 2. Small pericardial effusion
--- NOTE | 2024-05-10 14:59 | P.PN ---
Subjective Progress Note Date: 05/10/24 HISTORY OF PRESENT ILLNESS: This is a 73-year-old male with a past medical history significant for mild nonobstructive CAD, nonischemic cardiomyopathy, peripheral arterial disease, hyperlipidemia with statin intolerance, and sick sinus syndrome status post permanent pacemaker. Patient follows in the office with Dr. Butler. We have been asked to see the patient in consultation for chest pain. Patient was recently hospitalized in April 2024 at [facility] for sepsis/UTI. Patient examined at the bedside. Patient reports he has been feeling short of breath and dizzy. He reports feeling really tired and states yesterday he "just wanted to ". He reports 20-25 lb weight loss in 2 weeks. He states he has no appetite and is not eating. He reports chest discomfort prior to his hospitalization at [facility] earlier this month. DIAGNOSTICS: - EKG appears regular. No definite P waves. Likely sinus mechanism. Can not rule out underlying afib. - Chest xray mild hyperinflation may relate to depth of inspiration or underlying emphysema. No definite acute process. - Laboratory data: WBC 11.8. Hemoglobin 13.0. Platelet count 432. INR 1.2. Sodium 131. Potassium 3.6. BUN 24. Creatinine 1.44. Magnesium 1.5. Troponin negative x 3. proBNP 595. - Current home cardiac medications include Demadex 20 mg daily and aspirin 81 mg daily - Most recent echocardiogram obtained in April 2024 revealed ejection fraction 55 to 60% with mild to moderate MR - Cardiac catheterization history: June 2020 revealing mild nonobstructive CAD 05/10/24 He reports that he is having difficulty keeping any food down. He denies any chest pain or pressure. Shortness of breath is stable. CRP and ESR are pending from this morning. Pacer interrogation reviewed and shows normal function, no episodes. CT of the abdomen does show lymphadenopathy throughout the abdomen concerning for a neoplastic process. Limited echo shows EF 50-55%, severe LVH 1.8 cm, small pericardial effusion without tamponade physiology. PHYSICAL EXAM: VITAL SIGNS: Reviewed. GENERAL: Well-developed in no acute distress. HEENT: Head is normocephalic. Pupils are equal, round. Sclerae anicteric. Mucous membranes of the mouth are moist. Neck supple. No JVD or thyromegaly LUNGS: Respirations even and unlabored. Lungs essentially clear to auscultation bilaterally. HEART: Regular rate and rhythm. S1 and S2 heard. ABDOMEN: Soft. Nondistended. Nontender. EXTREMITIES: Normal range of motion. No clubbing or cyanosis. Peripheral pulses intact. No lower extremity edema NEUROLOGIC: Awake and alert. Oriented x 3. ASSESSMENT: Shortness of breath Dizziness/lightheaded Generalized weakness 20 lb weight loss over 2 weeks with decreased oral intake Recent hospitalization due to sepsis and UTI at [facility], April 2024 Mild nonobstructive CAD History of nonischemic cardiomyopathy with initial EF 25 to 30%, since improved to 55 to 60% Hyperlipidemia with statin intolerance Sick sinus syndrome status post permanent pacemaker implantation Peripheral arterial disease with occluded anterior tibial artery History of aryan and appendectomy Small pericardial effusion Severe LVH Lymphadenopathy of the abdomen concerning for a neoplastic process PLAN: Preserved EF. ESR and CRP are pending. Oncology and GI have been consulted. Pacemaker shows normal function with no issues. Recommend Zofran as needed for nausea. We will follow. Nurse practitioner note has been reviewed by physician. Signing provider agrees with the documented findings, assessment, and plan of care documented by LAY OUT AND DETAIL DRAFTER as a scribe. Objective - Vital Signs Vital signs: Vital Signs Temp 98.6 F 05/10/24 14:44 Pulse 74 05/10/24 14:44 Resp 17 05/10/24 14:44 BP 108/67 05/10/24 14:44 Pulse Ox 96 05/10/24 14:44 FiO2 Intake & Output 05/09/24 05/10/24 05/10/24 18:59 06:59 18:59 Intake Total 236 118 Balance 236 118 Intake: Oral 236 118 Other: # Voids 1 3 1 - Labs CBC & Chem 7: 05/09/24 06:06 05/10/24 04:16 Labs: Abnormal Lab Results - Last 24 Hours (Table) 05/10/24 Range/Units 04:16 Sodium 134 L (135-145) mmol/L Chloride 94 L (96-109) mmol/L Est GFR (CKD-EPI) 57 L (>=60) Calcium 8.2 L (8.7-10.3) mg/dL Total Protein 5.4 L (6.2-8.2) g/dL Albumin 2.9 L (3.8-4.9) g/dL Albumin/Globulin Ratio 1.16 L (1.60-3.17) Ratio
--- NOTE | 2024-05-10 16:13 | P.PN ---
Subjective Progress Note Date: 05/10/24 Principal diagnosis: dizziness patient having difficulty with vomiting after he eats. states he keeps the food down but throws up liquid. also having vague discomfort in the abdomen. No fevers or chills. No other overnight events. Objective - Vital Signs Vital signs: Vital Signs Temp 98.6 F 05/10/24 14:44 Pulse 74 05/10/24 14:44 Resp 17 05/10/24 14:44 BP 108/67 05/10/24 14:44 Pulse Ox 96 05/10/24 14:44 FiO2 Intake & Output 05/09/24 05/10/24 05/10/24 18:59 06:59 18:59 Intake Total 236 118 Balance 236 118 Intake: Oral 236 118 Other: # Voids 1 3 1 - Exam Constitutional: No acute distress, conversant, pleasant Eyes:Anicteric sclerae, moist conjunctiva, no lid-lag, PERRLA, ENMT: Oropharynx clear, no erythema, exudates Neck: Supple, FROM, no masses, or JVD, No carotid bruits, No thyromegaly Lungs: Clear to auscultation, Clear to percussion, Normal respiratory effort, no accessory muscle use Cardiovascular: Heart regular in rate and rhythm, No murmurs, gallops, or rubs, No peripheral edema Abdominal: Soft, Nontender, no guarding, rebound or rigidity, Normoactive bowel sounds, No hepatomegaly, No splenomegaly, No palpable mass Skin: Normal temperature, tone, texture, turgor, no induration, No subcutaneous nodules, No rash, lesions, No ulcers Extremities: No digital cyanosis, No clubbing, Pedal pulses intact and symmetrical, Radial pulses intact and symmetrical, No calf tenderness Psychiatric: Alert and oriented to person, place and time, appropriate affect, intact judgement Neuro: Muscles Strength 5/5 in all 4 extremities, Sensation to light touch grossly present throughout, Cranial nerves II-XII grossly intact, no focal sensory deficits - Labs CBC & Chem 7: 05/09/24 06:06 05/10/24 04:16 Labs: Abnormal Lab Results - Last 24 Hours (Table) 05/10/24 Range/Units 04:16 Sodium 134 L (135-145) mmol/L Chloride 94 L (96-109) mmol/L Est GFR (CKD-EPI) 57 L (>=60) Calcium 8.2 L (8.7-10.3) mg/dL Total Protein 5.4 L (6.2-8.2) g/dL Albumin 2.9 L (3.8-4.9) g/dL Albumin/Globulin Ratio 1.16 L (1.60-3.17) Ratio Assessment and Plan Plan: Shortness of breath, Dizziness/lightheaded History of nonischemic cardiomyopathy with initial EF 25 to 30%, since improved to 55 to 60%, stable, currently euvolemic Sick sinus syndrome status post permanent pacemaker implantation Peripheral arterial disease with occluded anterior tibial artery Severe LVH States he recently had an echocardiogram and was evaluated for pulmonary emboli Telemetry pacemaker evaluation ok Echo ok Cardio following Abdominal pain GI upset/constipation Weight loss/20 lb weight loss over 2 weeks with decreased oral intake Symptoms ongoing for the past month CT abd/pelvis showing diffuse lymphadenopathy GI consult Lymphadenopathy of the abdomen concerning for a neoplastic process CT chest ordered showing lymphadenopathy as well Consult oncology. Chronic CAD, 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
[2024-05-10] MEDS: ONDANSETRON 4 MG/2 ML VIAL IVP PRN (17:01)
--- NOTE | 2024-05-11 13:44 | P.PN ---
Subjective Progress Note Date: 05/11/24 HISTORY OF PRESENT ILLNESS: This is a 73-year-old male with a past medical history significant for mild nonobstructive CAD, nonischemic cardiomyopathy, peripheral arterial disease, hyperlipidemia with statin intolerance, and sick sinus syndrome status post permanent pacemaker. Patient follows in the office with Dr. Butler. We have been asked to see the patient in consultation for chest pain. Patient was recently hospitalized in April 2024 at [facility] for sepsis/UTI. Patient examined at the bedside. Patient reports he has been feeling short of breath and dizzy. He reports feeling really tired and states yesterday he "just wanted to ". He reports 20-25 lb weight loss in 2 weeks. He states he has no appetite and is not eating. He reports chest discomfort prior to his hospitalization at [facility] earlier this month. DIAGNOSTICS: - EKG appears regular. No definite P waves. Likely sinus mechanism. Can not rule out underlying afib. - Chest xray mild hyperinflation may relate to depth of inspiration or underlying emphysema. No definite acute process. - Laboratory data: WBC 11.8. Hemoglobin 13.0. Platelet count 432. INR 1.2. Sodium 131. Potassium 3.6. BUN 24. Creatinine 1.44. Magnesium 1.5. Troponin negative x 3. proBNP 595. - Current home cardiac medications include Demadex 20 mg daily and aspirin 81 mg daily - Most recent echocardiogram obtained in April 2024 revealed ejection fraction 55 to 60% with mild to moderate MR - Cardiac catheterization history: June 2020 revealing mild nonobstructive CAD 05/10/24 He reports that he is having difficulty keeping any food down. He denies any chest pain or pressure. Shortness of breath is stable. CRP and ESR are pending from this morning. Pacer interrogation reviewed and shows normal function, no episodes. CT of the abdomen does show lymphadenopathy throughout the abdomen concerning for a neoplastic process. Limited echo shows EF 50-55%, severe LVH 1.8 cm, small pericardial effusion without tamponade physiology. 05/11/24 He is still having difficulty eating, minimal relief with zofran. He is concerned about constipation today. No chest pain or pressure. No shortness of breath or dizziness. He has not seen oncology yet. PHYSICAL EXAM: VITAL SIGNS: Reviewed. GENERAL: Well-developed in no acute distress. HEENT: Head is normocephalic. Pupils are equal, round. Sclerae anicteric. Mucous membranes of the mouth are moist. Neck supple. No JVD or thyromegaly LUNGS: Respirations even and unlabored. Lungs essentially clear to auscultation bilaterally. HEART: Regular rate and rhythm. S1 and S2 heard. ABDOMEN: Soft. Nondistended. Nontender. EXTREMITIES: Normal range of motion. No clubbing or cyanosis. Peripheral pulses intact. No lower extremity edema NEUROLOGIC: Awake and alert. Oriented x 3. ASSESSMENT: Shortness of breath Dizziness/lightheaded Generalized weakness 20 lb weight loss over 2 weeks with decreased oral intake Recent hospitalization due to sepsis and UTI at [facility], t 2023 Mild nonobstructive CAD History of nonischemic cardiomyopathy with initial EF 25 to 30%, since improved to 55 to 60% Hyperlipidemia with statin intolerance Sick sinus syndrome status post permanent pacemaker implantation Peripheral arterial disease with occluded anterior tibial artery History of aryan and appendectomy Small pericardial effusion Severe LVH Lymphadenopathy of the abdomen concerning for a neoplastic process PLAN: Awaiting oncology eval. Blood pressure is controlled off medications. No further cardiac work up indicated at this time. Cardiology to sign off. Please call with any questions or concerns. Follow up in office in 1-2 weeks. Nurse practitioner note has been reviewed by physician. Signing provider agrees with the documented findings, assessment, and plan of care documented by SEISMOGRAPH SHOOTER as a scribe. Objective - Vital Signs Vital signs: Vital Signs Temp 98.0 F 05/11/24 07:40 Pulse 84 05/11/24 07:40 Resp 18 05/11/24 07:40 BP 109/66 05/11/24 07:40 Pulse Ox 95 05/11/24 07:40 FiO2 Intake & Output 05/10/24 05/11/24 05/11/24 18:59 06:59 18:59 Intake Total 118 Balance 118 Intake: Oral 118 Other: # Voids 1 1 - Labs CBC & Chem 7: 05/09/24 06:06 05/10/24 04:16
--- NOTE | 2024-05-11 14:20 | P.PN ---
Subjective Progress Note Date: 05/11/24 Principal diagnosis: dizziness He is still having difficulty eating, with decreased appetite and nausea after eating, minimal relief with zofran---refused it this am. He is concerned about constipation today, last BM a week ago. No chest pain or pressure. No shortness of breath or dizziness. Objective - Vital Signs Vital signs: Vital Signs Temp 98.0 F 05/11/24 07:40 Pulse 84 05/11/24 07:40 Resp 18 05/11/24 07:40 BP 109/66 05/11/24 07:40 Pulse Ox 95 05/11/24 07:40 FiO2 Intake & Output 05/10/24 05/11/24 05/11/24 18:59 06:59 18:59 Intake Total 118 Balance 118 Intake: Oral 118 Other: # Voids 1 1 - Exam Constitutional: No acute distress, conversant, pleasant Eyes:Anicteric sclerae, moist conjunctiva, no lid-lag, PERRLA, ENMT: Oropharynx clear, no erythema, exudates Neck: Supple, FROM, no masses, or JVD, No carotid bruits, No thyromegaly Lungs: Clear to auscultation, Clear to percussion, Normal respiratory effort, no accessory muscle use Cardiovascular: Heart regular in rate and rhythm, No murmurs, gallops, or rubs, No peripheral edema Abdominal: Soft, Nontender, no guarding, rebound or rigidity, Normoactive bowel sounds, No hepatomegaly, No splenomegaly, No palpable mass Skin: Normal temperature, tone, texture, turgor, no induration, No subcutaneous nodules, No rash, lesions, No ulcers Extremities: No digital cyanosis, No clubbing, Pedal pulses intact and symmetrical, Radial pulses intact and symmetrical, No calf tenderness Psychiatric: Alert and oriented to person, place and time, appropriate affect, intact judgement Neuro: Muscles Strength 5/5 in all 4 extremities, Sensation to light touch grossly present throughout, Cranial nerves II-XII grossly intact, no focal sensory deficits - Labs CBC & Chem 7: 05/09/24 06:06 05/10/24 04:16 Assessment and Plan Plan: Shortness of breath, Dizziness/lightheaded History of nonischemic cardiomyopathy with initial EF 25 to 30%, since improved to 55 to 60%, stable, currently euvolemic Sick sinus syndrome status post permanent pacemaker implantation Peripheral arterial disease with occluded anterior tibial artery Severe LVH Telemetry pacemaker evaluation ok Echo ok Cardio signed off Abdominal pain GI upset/constipation Weight loss/20 lb weight loss over 2 weeks with decreased oral intake Started on zofran and laxatives CT abd/pelvis showing diffuse lymphadenopathy GI consult---pending Lymphadenopathy of the chest and abdomen concerning for a neoplastic process vs chronic infection Consult oncology---pending Chronic CAD, 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
[2024-05-11 15:16] VITALS: RESP 16
[2024-05-11] MEDS: SENNOSIDES 8.6 MG TAB PO STA (15:16)
[2024-05-11] MEDS: polyethylene glycoL 3350 17 GM POWD.PACK PO STA (16:14)
[2024-05-11] MEDS: ENOXAPARIN 40 MG/0.4 ML SYRINGE SQ SCH (16:14)
[2024-05-12 07:53] LABS: Basophils # (A) 0.1 k/uL (0-0.2); Basophils % (A) 1 %; Eosinophils # (A) 0.2 k/uL (0-0.7); Eosinophils % (A) 2 %; HCT 34.3 % (39.0-53.0); HGB 11.5 gm/dL (13.0-17.5); Lymphocytes % (A) 11 %; MCH 30.4 pg (25.0-35.0); MCHC 33.4 g/dL (31.0-37.0); Mean Platelet Volume 8.1; Monocytes # (A) 0.9 k/uL (0-1.0); Monocytes % (A) 10 %; Neutrophils # (A) 6.5 k/uL (1.3-7.7); Neutrophils % (A) 73 %; Platelet Count 324 k/uL (150-450); RBC 3.77 m/uL (4.30-5.90); RDW 13.9 % (11.5-15.5); WBC 8.9 k/uL (3.8-10.6)
[2024-05-12 08:06] LABS: ALT 12 U/L (4-49); AST 35 U/L (17-59); African American GFR (CKD) 65 (>60 ml/min/1.73 sqM); Albumin 2.6 g/dL (3.5-5.0); Albumin/Globulin Ratio 0.9; Alkaline Phosphatase 65 U/L (38-126); Anion Gap 2 mmol/L; Blood Urea Nitrogen 18 mg/dL (9-20); Calcium 8.1 mg/dL (8.4-10.2); Carbon Dioxide 32 mmol/L (22-30); Chloride 96 mmol/L (98-107); Globulin 2.9 g/dL; Glucose 101 mg/dL (74-99); Non-African American GFR(CKD) 56 (>60 ml/min/1.73 sqM); Potassium 3.5 mmol/L (3.5-5.1); Sodium 130 mmol/L (137-145); Total Bilirubin 1.1 mg/dL (0.2-1.3); Total Protein 5.5 g/dL (6.3-8.2)
[2024-05-12] MEDS: SENNOSIDES 8.6 MG TAB PO SCH (08:06)
[2024-05-12] MEDS: polyethylene glycoL 3350 17 GM POWD.PACK PO SCH (08:06)
[2024-05-12 08:15] VITALS: BP 117/71; PULSE 83; TEMP 98.2
[2024-05-12 15:04] LABS: % Iron Saturation 23.61 (15.00-50.00)
--- NOTE | 2024-05-12 16:09 | P.DS ---
Providers Date of admission: 05/08/24 14:07 Expected date of discharge: 05/12/24 Attending physician: Ana Arboleda MD Consults: 05/09/24 15:32 Consult Physician Urgent Consulting Provider: Lakia Arnett Consult Reason/Comments: gi upset Do you want consulting provider notified?: Yes 05/10/24 11:44 Consult Physician Routine Consulting Provider: Robbi Clark Consult Reason/Comments: lymphadenopathy Do you want consulting provider notified?: Yes Primary care physician: Jimmie Felton Hospital Course: Discharge Diagnosis: Diffuse lymphadenopathy within chest and abdomen Abdominal pain Constipation Unintentional weight loss Dyspnea Generalized weakness Mild hyponatremia Mild hypokalemia Mild hypomagnesemia History of nonischemic cardiomyopathy with initial EF of 25 to 30%, now improved to 55 to 60%, euvolemic Sick sinus syndrome status post pacemaker Peripheral arterial disease Severe LVH Hospital Course: 73-year-old male with a history of HFrEF now with recovered EF, CAD, spinal degenerative disc disease presented with weakness and shortness of breath. He was recently at an outside hospital, was treated for UTI with sepsis. On admission. Vital signs were stable. Laboratory examination showed mild leukocytosis of 11.8, sodium 131, creatinine 1.44, magnesium 1.2, troponin 0.022, proBNP 595, urinalysis negative. Cardiology was consulted. Echo cardiogram showed recovered EF of 50 to 55%, severe LVH. EKG shows right bundle branch block and atrial fibrillation. Due to persistent abdominal pain, had abdominal pelvis CT which showed lymphadenopathy throughout the abdomen concerning for neoplastic process. Chest CT subsequently obtained which showed pretracheal lymphadenopathy and retrocrural adenopathy, small pericardial effusion. Patient was found to be euvolemic, no further IV diuretics. Oncology was consulted. Recommending outpatient follow-up. At the time of discharge, patient denies any acute symptoms. Will also follow-up with PCP outpatient to repeat BMP. Patient seen and examined at bedside. Vital signs reviewed and stable. General: Nontoxic, no distress, appears at stated age Derm: Warm, dry Head: Atraumatic, normocephalic, symmetric Eyes: EOMI, no lid lag, anicteric sclera Mouth: No lip lesion, mucus membranes moist Cardiovascular: S1S2 reg, no murmur Lungs: CTA bilateral, no rhonchi, no rales, no accessory muscle use Abdominal: Soft, nontender to palpation, no guarding, no appreciable organomegaly Ext: No gross muscle atrophy, no edema, no contractures Neuro: CN II-XI grossly intact, no focal neuro deficits Psych: Alert, oriented, appropriate affect A total of 33 minutes of time were spent preparing this complex discharge summary. Patient was discharged on 05/12/2024 1305. Patient Condition at Discharge: Stable Plan - Discharge Summary Discharge Rx Participant: No New Discharge Prescriptions: Continue Aspirin 81 mg PO DAILY traMADol HCl [Ultram] 50 mg PO TID PRN PRN Reason: Pain Latanoprost/Pf [Latanoprost 0.005% Eye Drop] 1 drop BOTH EYES HS Brimonidine Tartrate [Alphagan P 0.2% Ophth Soln] 1 drops LEFT EYE BID Torsemide [Demadex] 20 mg PO DAILY Discharge Medication List Aspirin 81 mg PO DAILY 04/07/15 [History] traMADol HCl [Ultram] 50 mg PO TID PRN 07/02/20 [History] Latanoprost/Pf [Latanoprost 0.005% Eye Drop] 1 drop BOTH EYES HS 11/09/21 [History] Brimonidine Tartrate [Alphagan P 0.2% Ophth Soln] 1 drops LEFT EYE BID 03/23/24 [History] Torsemide [Demadex] 20 mg PO DAILY 05/08/24 [History] Follow up Appointment(s)/Referral(s): Arielle Read MD [Medical Doctor] - 2 Weeks Jimmie Felton MD [Primary Care Provider] - 1-2 days Patient Instructions/Handouts: Lymphadenopathy (GEN) Activity/Diet/Wound Care/Special Instructions: Please see PCP as soon as possible. You will need repeat blood work in a few days. Please see oncology in 2 weeks. Discharge Disposition: HOME SELF-CARE
--- NOTE | 2024-05-12 19:59 | P.CONS ---
History of Present Illness - Reason for Consult Consult date: 05/12/24 LAD Requesting physician: Ana Arboleda - Chief Complaint SOB - History of Present Illness Mr. Anna is a very pleasant 73 yo male who is here for SOB. Also with dec reased oral intake and weight loss for the past couple weeks. he was admitted to [facility] couple weeks ago for UTI with sepsis. Had persistent nausea, and worsening constipation after discharge, with only 1 small BM, and ended up here for increased SOB and nausea. Has chronic constipation, controlled wiht metamucil in the past, but not this severe. CT CAP obtained which revealed 1cm pretracheal LN, and few scattered retroperitoneal and abdominal LN's <2cm. We were consulted for further rec's on LAD. He has had colonoscopy, last was 5 yrs ago. In the past had polyps removed and had appripriate repeat colonoscopies with Dr. Ramsay. No prior EGD. Having increased nausea now with food aversions from smells, and epigastric tenderness. Weight loss due to decreased oral intake. No fevers, recurrent infections or drenching sweats. No smoking, alcohol, or drug use. 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 Family history of ovarian cancer in his sister in her 30's, later passed from what they describe as metastatic lung cancer. brother with chronic leukemia for years, attributed to agent orange. No other known FH of cancer. Past Medical History Past Medical History: Cancer, Diabetes Mellitus, Hypertension Additional Past Medical History / Comment(s): BASAL CELL left leg. CARDIAC HISTORY PER DR. MILLARD. History of Any Multi-Drug Resistant Organisms: None Reported Past Surgical History: Cholecystectomy, Pacemaker Additional Past Surgical History / Comment(s): BASAL CELL removed from left leg WITH MAC. Past Anesthesia/Blood Transfusion Reactions: No Reported Reaction Additional Past Anesthesia/Blood Transfusion Reaction / Comm: . Type of Cardiac Device: Permanent Pacemaker Device Placement Date:: 07/2008,02/2016 Past Psychological History: No Psychological Hx Reported Smoking Status: Never smoker Past Alcohol Use History: None Reported Past Drug Use History: None Reported - Past Family History Sister(s) Family Medical History: Cancer Medications and Allergies Home Medications Medication Instructions Recorded Confirmed Type Aspirin 81 mg PO DAILY 04/07/15 05/08/24 History traMADol HCl [Ultram] 50 mg PO TID PRN 07/02/20 05/08/24 History Latanoprost/Pf [Latanoprost 0.005% 1 drop BOTH EYES HS 11/09/21 05/08/24 History Eye Drop] Brimonidine Tartrate [Alphagan P 1 drops LEFT EYE BID 03/23/24 05/08/24 History 0.2% Ophth Soln] Torsemide [Demadex] 20 mg PO DAILY 05/08/24 05/08/24 History Allergies Allergy/AdvReac Type Severity Reaction Status Date / Time codeine AdvReac Itching Verified 05/08/24 12:22 Physical Exam Vitals: Vital Signs Temp Pulse Resp BP BP Pulse Ox 05/12/24 07:00 98.2 F 83 16 117/71 92 L 05/12/24 03:45 98.3 F 82 16 102/71 94 L 05/11/24 20:28 98.7 F 58 L 16 113/67 94 L 05/11/24 20:00 82 05/11/24 15:00 98 F 82 16 111/72 96 Intake and Output 05/11/24 05/12/24 05/12/24 22:59 06:59 14:59 Other: # Voids 1 2 No respiratory distress. Neck supple without cervical/supraclavicular LAD. No axillary LAD. Abdomen soft, with epigastric tenderness without rebound or rigidity. No organomegaly. Alert and oriented x 3. Results CBC & Chem 7: 05/12/24 06:50 05/12/24 06:50 Labs: Abnormal Lab Results - Last 24 Hours (Table) 05/12/24 05/12/24 Range/Units 06:50 06:50 RBC 3.77 L (4.30-5.90) m/uL Hgb 11.5 L (13.0-17.5) gm/dL Hct 34.3 L (39.0-53.0) % Sodium 130 L (137-145) mmol/L Chloride 96 L (98-107) mmol/L Carbon Dioxide 32 H (22-30) mmol/L Glucose 101 H (74-99) mg/dL Calcium 8.1 L (8.4-10.2) mg/dL Total Protein 5.5 L (6.3-8.2) g/dL Albumin 2.6 L (3.5-5.0) g/dL CT scan - abdomen: report reviewed, image reviewed CT scan - chest: report reviewed, image reviewed CT scan - pelvis: report reviewed, image reviewed Assessment and Plan Assessment: LAD Plan: Mr. Anna is a very pleasant 73 yo male with history of multiple comor bidities, recently hospitalized for UTI at [facility] with worsening constipation and nausea since then. Here with SOB and persistnet abdominal discomfort, epigastric tenderness, and associated weight loss over past couple weeks due to limited oral intake -I reviewed CT images and discussed results with pt -Has small scattered LN's in chest and abdominal region -Doubt due to lymphoma -No obvious mass to suggest other malignancy -Needs GI evaluation due to decreased appetite, epigastric tenderness, nausea, weight loss, and to rule out GI malignancy -Otherwise, will obtain flow cytometry and plan on OP follow up CT in 2 months to reassess LAD -Bowel regimen for constipation -No objections to discharge from oncology stand point. Pt needs to follow up in clinic in 2-4 weeks. Discussed with pt and his at bedside and they are agreeable. All questions answered. Discussed with primary team.
[2024-05-13] MEDS ORDERED: SENNOSIDES 8.6 MG TAB PO SCH (09:00)
== END 2024-05-12 14:50 | disposition home or self-care (01) ==
LOC: EC 11:04 → 6NMEDSUR 14:07
PROVIDERS: ADMIT Family Medicine; ATTEND Family Medicine
DX: R59.1 Generalized enlarged lymph nodes (principal); R63.4 Abnormal weight loss; R42 Dizziness and giddiness; K59.00 Constipation, unspecified; E11.51 Type 2 diabetes mellitus with diabetic peripheral angiopathy without gangrene; E78.5 Hyperlipidemia, unspecified; E83.42 Hypomagnesemia; E87.1 Hypo-osmolality and hyponatremia; E87.6 Hypokalemia; I13.0 Hypertensive heart and chronic kidney disease with heart failure and stage 1 through stage 4 chronic kidney disease, or unspecified chronic kidney disease; I25.10 Atherosclerotic heart disease of native coronary artery without angina pectoris; I45.10 Unspecified right bundle-branch block; I48.91 Unspecified atrial fibrillation; I49.5 Sick sinus syndrome; I50.22 Chronic systolic (congestive) heart failure; I42.8 Other cardiomyopathies; M48.061 Spinal stenosis, lumbar region without neurogenic claudication; N17.9 Acute kidney failure, unspecified; N18.9 Chronic kidney disease, unspecified; N40.0 Benign prostatic hyperplasia without lower urinary tract symptoms; I70.209 Unspecified atherosclerosis of native arteries of extremities, unspecified extremity; H40.9 Unspecified glaucoma; I31.39 Other pericardial effusion (noninflammatory); M51.36 Other intervertebral disc degeneration, lumbar region; Z79.82 Long term (current) use of aspirin; Z79.899 Other long term (current) drug therapy; Z80.1 Family history of malignant neoplasm of trachea, bronchus and lung; Z80.41 Family history of malignant neoplasm of ovary; Z80.6 Family history of leukemia; Z95.0 Presence of cardiac pacemaker
CPT/HCPCS: 36415; 71046; 71260; 74176; 80048; 80053; 81003; 82150; 82607; 82728; 82746; 83540; 83550; 83605; 83615; 83690; 83735; 83880; 83930; 83935; 84100; 84300; 84443; 84484; 85025; 85610; 85652; 85730; 86140; 93005; 93308; 96365; 96366; 96372; 96375; 99285

== ENCOUNTER 2024-05-27 11:26 | Day surgery (SDC) | payer MEDICARE, OTHER ==
[2024-05-23 14:44] VITALS: BMI 30.7
[2024-05-27 12:03] VITALS: TEMP 98.1
[2024-05-27] MEDS: IV FLUID CONTINUATION 1,000 ML IV ONE (12:07)
[2024-05-27] MEDS: LACTATED RINGERS 1,000 ML IV SCH (12:07)
[2024-05-27] MEDS ORDERED: PROPOFOL 10 MG/ML 20 ML VIAL IV ONE (13:22)
[2024-05-27] MEDS ORDERED: LIDOCAINE 2% (PF) 20 MG/ML 5 ML VIAL ONE (13:22)
--- NOTE | 2024-05-27 13:46 | P.PCN ---
Date of Procedure: 05/27/24 Procedure(s) Performed: Brief history: Patient is a pleasant 73-year-old white male scheduled for an elective upper endoscopy as well as colonoscopy as a part of evaluation of abdominal pain and change in bowel habits and progressive weight loss of 30 pounds in the last 6 weeks duration Procedure performed: Esophagogastroduodenoscopy with biopsy. Colonoscopy Preoperative diagnosis: Abdominal pain/change in bowel habits Progressive weight loss Anesthesia: MAC Procedure: After informed consent was obtained from the patient was brought into the endoscopy unit and IV sedation was administered by anesthesia under continuous monitoring. Initially upper endoscopy was done. The Olympus GF 160 video endoscope was inserted inserted into the mouth and esophagus intubated without any difficulty and was gradually advanced into the stomach and duodenum and carefully examined. The bulb and second part of the duodenum appeared normal. The scope was then withdrawn into the stomach adequately insufflated with air and upon careful examination the antrum and body, cardia and fundus appeared normal. The scope was then withdrawn into the esophagus. The GE junction was located at 40 cm to the incisors. There was a small polypoid ulcerated circumferential lesion involving the GE junction extending approximately 1 cm in length history which was biopsied. The distal esophagus appeared normal. There were no ulcerations or erosions seen. Patient tolerated the procedure well. At this time the patient continued to remain sedation. Initial digital rectal examination was normal. Olympus CF 160 video colonoscope was then inserted into the rectum and gradually advanced to the cecum without any difficulty. Careful examination was performed as the scope was gradually being withdrawn. The prep was excellent. The cecum, ascending colon, transverse colon, descending colon, sigmoid colon and rectum appeared normal. Moderate left-sided diverticulosis. Retroflexion was performed in the rectum and no lesions were noted. Patient tolerated the procedure well. Impression: 1. Upper endoscopy revealed a small circumferential polypoid ulcerated lesion at the GE junction that is post multiple biopsies to rule out malignancy. 2. Colonoscopy revealed moderate diverticulosis but no evidence of colorectal neoplasia Recommendations: Findings of this examination were discussed with the patient as well as his family. He was advised to follow-up with the biopsy results. He will be seen in the office in 1 to 2 weeks.
[2024-05-27 14:08] VITALS: BP 143/73; PULSE 83; RESP 18
== END 2024-05-27 14:29 | disposition home or self-care (01) ==
LOC: ORWHC2ENDO 11:26
PROVIDERS: ATTEND Internal Medicine Gastroenterology
DX: C16.0 Malignant neoplasm of cardia (principal); K29.50 Unspecified chronic gastritis without bleeding; K57.30 Diverticulosis of large intestine without perforation or abscess without bleeding; K31.89 Other diseases of stomach and duodenum; I10 Essential (primary) hypertension; I44.7 Left bundle-branch block, unspecified; Z95.0 Presence of cardiac pacemaker; Z87.891 Personal history of nicotine dependence; Z79.899 Other long term (current) drug therapy; Z88.5 Allergy status to narcotic agent
CPT/HCPCS: 43239; 45378; 88305; 88341; 88342

== ENCOUNTER → 2024-06-12 | Outpatient (CLI) | payer MEDICARE, OTHER ==
--- NOTE | 2024-06-15 22:32 | PE ---
EXAMINATION TYPE: PET CT fusion skull to thigh DATE OF EXAM: 06/12/2024 COMPARISON: CT chest 05/10/2024 Prior PET/CT: No prior PET/CT at this location HISTORY: Esophageal cancer TECHNIQUE: Following the intravenous administration of 13.33 mCi of F-18 FDG, whole body images are performed from the skull base to the midthigh. Images are reviewed on the computer in the coronal, a xial, and sagittal planes. Reconstructed rotating images are created on independent workstation and reviewed on the computer. A localization and attenuation correction CT is performed in conjunction with the PET scan. DLP: 957.06 mGycm SCAN: Subsequent Blood glucose: 104 mg/dL Average Mediastinum SUV: 2.01 Average Liver SUV: 2.48 FINDINGS: NECK: Multiple left-sided neck lymph nodes with increased uptake. Image 44, SUV 5.43 medially, laterally 3.82. Image 47, SUV 5.19 posteriorly, SUV 5.23 anteriorly. Image 51, SUV 11.35. Image 61, SUV 6.18 THORAX: Several mediastinal areas of abnormal uptake. Medial posterior left lung, image 78, 73.67 Image 109, posterior to aorta, SVC 6.25 Image 116 anterior and posterior to the aorta 5.53, 6.08 respectively. Image 118 peripheral lung density of 1.56. Image 118 anterior to aorta, SUV 10.32 ABDOMEN: Uptake is within the distal esophagus at the gastroesophageal junction, example image 131, S UV 4.58. Extensive periaortic adenopathy is present. Example images 146, SUV 4.8, image 152 SUV 10.11 Image 157, retrocaval SUV 7.71. Celiac axis uptake in para-aortic uptake at this level measure 9.02 a nd 9.4 Image 162 SUV 11.76 Image 167, SUV 13.25 Image 180, retrocaval SUV 6.29, preaortic 5.25, periaortic 8.14, image 190, CT 1228 2 PELVIS: Image 201, left iliac uptake 8.77 Image 211, internal and external iliac, SUV 7.4, 7.7 Image 222, left pelvis SUV 8.98 OSSEOUS STRUCTURES: No abnormal uptake LOCALIZATION CT: Minimal bilateral pleural effusions are present. Distal esophagus is mild thickening . Some retrocrural adenopathy appears to be present. Periaortic adenopathy is present. COMPARISON: Previous identified adenopathy correlates with the abnormal areas of uptake. IMPRESSION: 1. Uptake at the distal esophagus above the gastroesophageal junction, compatible with patient's hist ory of cancer. 2. There is extensive adenopathy throughout the left cervical chain, adjacent to the descending thora cic aorta, extensive abnormal adenopathy uptake in the para-aortic region extending into the left aimee ac and femoral regions [facility], Workstation: [email or web address], 06/15/2024 10:29 PM
== END | disposition home or self-care (01) ==
LOC: RADPETMAIN 07:57
PROVIDERS: ATTEND Internal Medicine Hematology & Oncology
DX: C15.5 Malignant neoplasm of lower third of esophagus (principal); R93.3 Abnormal findings on diagnostic imaging of other parts of digestive tract; R59.0 Localized enlarged lymph nodes
CPT/HCPCS: 78815; A9552

== ENCOUNTER → 2024-08-20 | Outpatient (CLI) | payer MEDICARE, OTHER ==
[2024-08-20 08:02] LABS: African American GFR (CKD) >90 (>60 ml/min/1.73 sqM); Blood Urea Nitrogen 9 mg/dL (9-20); Non-African American GFR(CKD) 82 (>60 ml/min/1.73 sqM)
--- NOTE | 2024-08-22 23:40 | CT ---
EXAMINATION TYPE: CT ChestAbdPelvis w con DATE OF EXAM: 08/20/2024 9:09 AM COMPARISON: PET/CT 06/12/2024 CLINICAL INDICATION: Male, 74 years old with history of C15.5 ESOPHAGEAL CX, Hx of esophageal cancer TECHNIQUE: Axial images at 5 mm thick sections. Reconstructed images in the coronal plane. Delayed images through the kidneys. Contrast used:100 mL of Isovue 300 with IV Contrast, (none if empty) Oral contrast used: with Oral Contrast (none if empty) CT DLP: 1877 mGycm, Automated exposure control for dose reduction was used. FINDINGS: CT CHEST: Suspicious supraclavicular adenopathy is not identified. Portion of the thyroid visualized is normal. No suspicious lung nodules or focal infiltrates are present. Some mild pulmonary fibrosis or atelectasis may be within the posterior lateral right lung base. Smal l bilateral pleural effusions are present. Small pericardial effusion is present. Coronary artery jon cification is noted. No enlarged mediastinal or hilar adenopathy is evident. The ascending aorta diameter at the level of the main pulmonary artery is 3.8 cm. The main pulmonary artery diameter at the bifurcation is 3.[address] ABDOMEN: Gastroesophageal junction appears normal. Postsurgical scar in the retrocrural region. Or al contrast is within the stomach. Liver: Some biliary dilatation appears to be present. The common bile duct is dilated. The pancreas h as normal caliber common bile duct. Spleen: Normal Pancreas: Atrophic Adrenal glands: The adrenal glands are normal. Gallbladder: The absent Kidneys: No masses are evident. No hydronephrosis is present. No cysts are present. There is a non obstructing punctate renal stone posterior mid left kidney. Aorta: Vascular calcification is within the aorta. Inferior vena cava: Normal. CT PELVIS: Loops of bowel within the abdomen and pelvis are normal. There are loops of bowel which are incom pletely distended or lack oral contrast limiting their evaluation. Appendix: Not identified. No dilated tubular structure or inflammatory change is evident. Urinary bladder: Normal. Genitourinary structures: Prostate contains calcification. Osseous structures: No suspicious lytic or sclerotic lesions. Lymphadenopathy: There is some shotty lymphadenopathy adjacent to the aorta and periaortic regions. E nlarged lymphadenopathy is not identified. Scattered small bilateral inguinal lymph nodes are present . Tiny lymph node is posterior to the descending thoracic aorta. Previous enlarged periaortic adenopa thy is not evident IMPRESSION: 1. Previous abnormal lymphadenopathy PET/CT has largely resolved. No enlarged lymphadenopathy is evid ent. [facility], , 08/22/2024 11:38 PM
== END | disposition home or self-care (01) ==
LOC: RADCTMAIN 07:02
PROVIDERS: ATTEND Internal Medicine Hematology & Oncology
DX: C15.5 Malignant neoplasm of lower third of esophagus (principal); R59.0 Localized enlarged lymph nodes; D64.89 Other specified anemias; D53.8 Other specified nutritional anemias; Z71.3 Dietary counseling and surveillance; J90 Pleural effusion, not elsewhere classified; N20.0 Calculus of kidney
CPT/HCPCS: 82565; 84520; 71260; 74177; 36415; Q9967

== ENCOUNTER → 2024-10-08 | Outpatient (CLI) | payer MEDICARE, OTHER ==
[2024-10-08 12:22] LABS: African American GFR (CKD) >90 (>60 ml/min/1.73 sqM); Blood Urea Nitrogen 14 mg/dL (9-20); Non-African American GFR(CKD) 81 (>60 ml/min/1.73 sqM)
--- NOTE | 2024-10-08 15:09 | CT ---
EXAMINATION TYPE: CT ChestAbdPelvis w con DATE OF EXAM: 10/08/2024 COMPARISON: 08/20/2024 HISTORY: ESOPHAGEAL CANCER, OBS FRO METS. CT DLP: 1595.0 mGycm Automated exposure control for dose reduction was used. CONTRAST: CT scan of the chest, abdomen and pelvis is performed with Oral Contrast and with IV Contrast, patien t injected with 100mL mL of Isovue 300. FINDINGS: CT chest: There is a stable 5 to 6 mm nodule in the right upper lobe. There is no new or suspicious lung mass o r nodule. There is no abnormal airspace/consolidative density or abnormal interstitial density. There is no pleural effusion, pleural thickening or pneumothorax. The great vessels and chest are normal there is no mediastinal, hilar or axillary adenopathy. No focal osseous lesions are seen. CT abdomen and pelvis: There is surgical absence of the gallbladder.. There is no biliary ductal dilatation. There is no focal mass or organomegaly involving the liver, pancreas, spleen or adrenal glands.. There is no solid renal mass or hydronephrosis. There is a 6 mm nonobstructing left renal calcificati on. There is no retroperitoneal adenopathy or hemorrhage in the caliber of the abdominal aorta is normal. The bowel loops are normal in caliber and there is no dilatation or obstruction. No inflammatory watson ges identified in the bowel wall and mesentery. There is no free intracranial air or fluid. There is no pelvic mass or adenopathy. There is no free fluid within the pelvis. No focal osseous lesions are seen. Soft tissue the abdomen and pelvis are normal. IMPRESSION: 1. No evidence of recurrent or metastatic disease in the chest, abdomen or pelvis. 2. 6 mm nonobstructing left renal calcification. [facility], , 10/08/2024 3:07 PM
== END | disposition home or self-care (01) ==
LOC: RADCTMAIN 11:03
PROVIDERS: ATTEND Internal Medicine Hematology & Oncology
DX: C15.5 Malignant neoplasm of lower third of esophagus (principal); R59.0 Localized enlarged lymph nodes; D64.89 Other specified anemias; D53.8 Other specified nutritional anemias; N20.0 Calculus of kidney
CPT/HCPCS: 82565; 84520; 71260; 74177; 36415; Q9967